=== PATIENT | male | born 1980 | race Caucasian/White ===

== ENCOUNTER 2017-06-08 14:32 | Emergency (ER) | payer MEDICARE, MEDICAID ==
[2017-06-08] MEDS ORDERED: NORMAL SALINE 1000 ML 1,000 ML IV ONE (15:18)
--- NOTE | 2017-06-08 15:21 | ER Document Report ---
ED Medical Screen (RME) - General Chief Complaint: Jaundice Stated Complaint: EYE ISSUES Time Seen by Provider: 06/08/17 15:18 Notes: Nausea vomiting and diarrhea. He also reports noticing that his eyes were yellow starting today. TRAVEL OUTSIDE OF THE [place] IN LAST 30 DAYS: No - Related Data Allergies/Adverse Reactions: Sulfa (Sulfonamide Antibiotics) Allergy (Verified 06/08/17 14:36) Past Medical History - Social History Chew tobacco use (# tins/day): No Frequency of alcohol use: Occasional Drug Abuse: None Neurological Medical History: Reports: Hx Seizures Renal/ Medical History: Denies: Hx Peritoneal Dialysis Past Surgical History: Reports: Hx Oral Surgery, Hx Orthopedic Surgery Physical Exam - Vital signs Vitals: Temp Pulse Resp BP Pulse Ox 98.1 F 112 H 14 157/96 H 98 06/08/17 14:40 06/08/17 14:40 06/08/17 14:40 06/08/17 14:40 06/08/17 14:40 Course - Vital Signs Vital signs: Temp Pulse Resp BP Pulse Ox 98.1 F 112 H 14 157/96 H 98 06/08/17 14:40 06/08/17 14:40 06/08/17 14:40 06/08/17 14:40 06/08/17 14:40
[2017-06-08 16:15] LABS: VENOUS BLOOD BASE EXCESS 4.5 mmol/L; VENOUS BLOOD HCO3 29.3 mmol/L (20-32); VENOUS BLOOD PCO2 44.4 mmHg (35-63); VENOUS BLOOD PH 7.44 (7.30-7.42)
[2017-06-08 16:21] LABS: INTERNATIONAL RATION (INR) 1.24; PROTHROMBIN TIME 16.5 SEC (11.4-15.4)
[2017-06-08 16:25] LABS: ABSOLUTE BASOPHILS # (AUTO) 0.1 10^3/uL (0.0-0.2); ABSOLUTE LYMPHOCYTES (AUTO) 0.5 10^3/uL (0.5-4.7); ABSOLUTE MONOCYTES (AUTO) 0.5 10^3/uL (0.1-1.4); ABSOLUTE NEUT (AUTO) 5.8 10^3/uL (1.7-8.2); BASOPHILS % (AUTO) 1.1 % (0-2); EOSINOPHILS % (AUTO) 0.3 % (0-6); HEMATOCRIT 39.9 % (37.9-51.0); HEMOGLOBIN 13.7 g/dL (13.5-17.0); LYMPHOCYTES % (AUTO) 7.5 % (13-45); MEAN CORPUSCULAR HEMOGLOBIN 34.9 pg (27.0-33.4); MEAN CORPUSCULAR HGB CONC 34.4 g/dL (32.0-36.0); MEAN CORPUSCULAR VOLUME 102 fl (80-97); MONOCYTES % (AUTO) 6.7 % (3-13); RED BLOOD COUNT 3.93 10^6/uL (4.35-5.55); RED CELL DISTRIBUTION WIDTH 15.6 % (11.5-14.0); SEGMENTED NEUTROPHILS % (AUTO) 84.4 % (42-78); TOTAL CELLS COUNTED % (AUTO) 100 %; WHITE BLOOD COUNT 6.9 10^3/uL (4.0-10.5)
[2017-06-08 16:35] LABS: ALANINE AMINOTRANSFERASE 59 U/L (21-72); ALBUMIN 3.7 g/dL (3.5-5.0); ALKALINE PHOSPHATASE 225 U/L (38-126); ANION GAP 12 (5-19); ASPARTATE AMINO TRANSFERASE 261 U/L (17-59); BILIRUBIN,DIRECT 11.4 mg/dL (0.0-0.4); BILIRUBIN,TOTAL 15.4 mg/dL (0.2-1.3); BLOOD UREA NITROGEN 9 mg/dL (7-20); CALCIUM 9.1 mg/dL (8.4-10.2); CARBON DIOXIDE 29 mmol/L (22-30); CHLORIDE 97 mmol/L (98-107); GLUCOSE 99 mg/dL (75-110); POTASSIUM 3.6 mmol/L (3.6-5.0); TOTAL PROTEIN 7.1 g/dL (6.3-8.2)
[2017-06-08 16:46] LABS: PLATELET COUNT 48 10^3/uL (150-450)
[2017-06-08 20:03] LABS: APPEARANCE,URINE SLIGHTLY-CLOUDY; BILIRUBIN,URINE MODERATE (NEGATIVE); COLOR,URINE AMBER; GLUCOSE, URINE NEGATIVE (NEGATIVE); KETONES,URINE 20 mg/dL (NEGATIVE); LEUKOCYTE ESTERASE,URINE NEGATIVE (NEGATIVE); NITRITE,URINE NEGATIVE (NEGATIVE); PROTEIN,URINE NEGATIVE (NEGATIVE); URINE SPECIFIC GRAVITY 1.021
--- NOTE | 2017-06-08 20:18 | ER Document Report ---
ED General - General Chief Complaint: Jaundice Stated Complaint: EYE ISSUES Time Seen by Provider: 06/08/17 15:18 Notes: Patient is a 36-year-old male who presents emergency department with a chief complaint of yellow eyes that started this morning. Patient states that he had nausea vomiting and diarrhea for the past 2 days stopped yesterday. Patient states that he woke up this morning with the otherwise his mom came over to see him for a doctor's appointment and said we have to go the ER to get this worked up. He otherwise denies any abdominal pain, itching, altered mental status, confusion, headaches. Denies any previous history of liver disease, hepatitis. Primary care is Dr. Christie with [facility], follows with Dr. Beck in [place] for ear nose and throat, neurologist is Dr. Nimesh ray in [place]. 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 Past surgical history significant for cochlear implants and tonsils Social history significant for 2-4 beers a day for the past 7-8 years. Patient states that his last drink was 2 days ago. TRAVEL OUTSIDE OF THE [place] IN LAST 30 DAYS: No - Related Data Allergies/Adverse Reactions: Sulfa (Sulfonamide Antibiotics) Allergy (Verified 06/08/17 14:36) Past Medical History - Social History Smoking Status: Never Smoker Chew tobacco use (# tins/day): No Frequency of alcohol use: Occasional Drug Abuse: None Family History: Reviewed & Not Pertinent Patient has suicidal ideation: No Patient has homicidal ideation: No Neurological Medical History: Reports: Hx Seizures Renal/ Medical History: Denies: Hx Peritoneal Dialysis Past Surgical History: Reports: Hx Oral Surgery, Hx Orthopedic Surgery Review of Systems - Review of Systems Constitutional: No symptoms reported EENT: See HPI Cardiovascular: No symptoms reported Respiratory: No symptoms reported Gastrointestinal: See HPI Musculoskeletal: No symptoms reported Skin: No symptoms reported Neurological/Psychological: No symptoms reported -: Yes All other systems reviewed and negative Physical Exam - Vital signs Vitals: Temp Pulse Resp BP Pulse Ox 98.1 F 112 H 14 157/96 H 98 06/08/17 14:40 06/08/17 14:40 06/08/17 14:40 06/08/17 14:40 06/08/17 14:40 - Notes Notes: PHYSICAL EXAM GENERAL: Alert, interacts well. HEAD: Normocephalic, atraumatic. EYES: Conjunctival icterus Pupils equal, round, and reactive to light. Extraocular movements intact. ENT: Oral mucosa moist, tongue midline. NECK: Full range of motion. Supple. Trachea midline. LUNGS: Clear to auscultation bilaterally, no wheezes, rales, or rhonchi. No respiratory distress. HEART: Regular rate and rhythm. No murmurs, gallops, or rubs. ABDOMEN: Soft, nondistended, nontender. No guarding, rebound, or rigidity.. Bowel sounds present in all 4 quadrants. EXTREMITIES: Moves all 4 extremities spontaneously. No edema, radial and dorsalis pedis pulses 2/4 bilaterally. No cyanosis. NEUROLOGICAL: Alert and oriented x4. Normal speech. PSYCH: Normal affect, normal mood. SKIN: Warm, dry, normal turgor. No rashes or lesions noted. Course - Re-evaluation Re-evalutation: 06/09/17 00:47 Patient is a 36-year-old male who is hemodynamically stable, no acute distress and afebrile. CBC stable without any evidence of leukocytosis or anemia. Mild elevation coag panel with an INR of 1.24. Elevation in liver enzymes AST of 261 , alk phos of 225 with a normal lipase. With a total bili of 15.4, direct bili of 11.4, presentation is concerning for a painful jaundice so patient was sent for a ultrasound in triage to evaluate for any gallbladder disease which came back with nondescript lesions of the liver. CT the abdomen pelvis with IV contrast was completed to evaluate for any pancreatic mass which did not show any evidence of. There is evidence of lesions within the liver as well as moderate ascites and moderate splenomegaly which is concerning for underlying liver disease. Discussed with patient and his mother at the bedside that this is something that will need to be followed up with a contracting manager for further evaluation. Discussed with him that he will need to quit drinking but he cannot do this abruptly. The other finding on CT the abdomen with small bowel swelling with concern for ileus. Patient has been tolerating p.o. for the past 24 hours and has had multiple bowel movements therefore low suspicion for any acute pathology. Will put patient on bowel rest with clear liquid diet for the next 48 hours and to follow-up with his primary care doctor tomorrow. Patient and his mom are agreeable with plan and given the opportunity for any questions which were all answered. Stable for discharge home. - Vital Signs Vital signs: Temp Pulse Resp BP Pulse Ox 99.1 F 100 18 141/95 H 97 06/09/17 00:50 06/09/17 00:50 06/09/17 00:50 06/09/17 00:50 06/09/17 00:50 - Laboratory Result Diagrams: 06/08/17 15:55 06/08/17 15:55 Laboratory results interpreted by me: 06/08/17 06/08/17 06/08/17 15:55 15:55 15:55 RBC MCV MCH RDW Plt Count Seg Neutrophils % Lymphocytes % PT 16.5 H VBG pH 7.44 H Chloride 97 L Total Bilirubin 15.4 H Direct Bilirubin 11.4 H AST 261 H Alkaline Phosphatase 225 H Ammonia Urine Ketones Urine Blood Urine Bilirubin Urine Urobilinogen 06/08/17 06/08/17 06/08/17 15:55 19:33 21:15 RBC 3.93 L MCV 102 H MCH 34.9 H RDW 15.6 H Plt Count 48 L Seg Neutrophils % 84.4 H Lymphocytes % 7.5 L PT VBG pH Chloride Total Bilirubin Direct Bilirubin AST Alkaline Phosphatase Ammonia < 8.7 L Urine Ketones 20 H Urine Blood SMALL H Urine Bilirubin MODERATE H Urine Urobilinogen 4.0 H - Diagnostic Test Radiology reviewed: Image reviewed, Reports reviewed Discharge - Discharge Clinical Impression: Elevated liver function tests, Pre-hypertension Condition: Good Disposition: HOME, SELF-CARE Additional Instructions: Liver Function Abnormality Your evaluation has shown an abnormality of your liver function. This may not be serious, but you need further testing. Abnormal liver function can be caused by alcohol, medicines, virus infections, heart failure, tumors, gallbladder problems, and many other diseases. But sometimes "abnormal" liver enzymes are "normal" -- it's just the way your liver works and there's nothing wrong. We need to be sure. If your doctor thinks the abnormal test was caused by alcohol, medicine, or a recent virus, we may just repeat the liver enzyme test later. Often, the test shows that the elevated enzymes are back to normal. Usually no treatment is necessary, except for avoiding the cause of the liver dysfunction (such as alcohol or a specific medicine). Further testing could include an ultrasound of the liver, liver scan, or perhaps a liver biopsy in difficult cases. Call the doctor if you become increasingly yellow, vomit repeatedly, begin to bruise or bleed easily, or have worsening abdominal pain.. Clear Liquid Diet A clear liquid diet has been prescribed. Start with small amounts. If these cause no worsening of symptoms, begin to take larger amounts of fluid. Ideally, these fluids should contain some sugar and minerals. Examples include: Soft drinks Apple juice Jello (with no fruit) Diluted broth Tea or uncreamed coffee This diet should be continued until the physician advises you to advance to other foods (usually when most symptoms have resolved). Most often you'll be told to advance to simple starchy foods such as soda crackers, white bread, unbuttered potato, or banana. *Please follow-up with Dr. Christie tomorrow for emergency room follow-up and referral for gastroenterology. Please bring this packet with her included blood work. Prescriptions: Ondansetron [Zofran Odt 4 mg Tablet] 1 - 2 tab PO Q4H PRN #15 tab.rapdis PRN Reason: For Nausea/Vomiting Forms: Elevated Blood Pressure Referrals: FARZAD MEADE MD [ACTIVE STAFF] - Follow up in 3-5 days
--- NOTE | 2017-06-08 20:26 | RADIOLOGY REPORT (SQ) ---
EXAM DESCRIPTION: U/S ABDOMEN LIMITED W/O DOP COMPLETED DATE/TIME: 06/08/2017 8:16 pm REASON FOR STUDY: elevated lfts/nvd/jaundice COMPARISON: None. TECHNIQUE: Dynamic and static grayscale images acquired of the right upper quadrant and recorded on PACS. Additional selected color Doppler and spectral images recorded. LIMITATIONS: Study limited due to acoustical interference from fat or from air in the bowel. FINDINGS: PANCREAS: Not visualized. LIVER: Echotexture is coarse with increased echogenicity consistent with fatty infiltration. No mass es. LIVER VASCULATURE: Normal directional flow of the main portal vein and hepatic veins. GALLBLADDER: No stones. Normal wall thickness. No pericholecystic fluid. ULTRASOUND-DETECTED REED'S SIGN: Negative. INTRAHEPATIC DUCTS AND COMMON DUCT: Poorly visualized. INFERIOR VENA CAVA: Not visualized. AORTA: Not visualized. RIGHT KIDNEY: Normal size. Normal echogenicity. No solid or suspicious masses. No hydronephros is. No calcifications. PERITONEAL CAVITY AND RIGHT PLEURAL SPACE: No ascites or effusions. OTHER: No other significant finding. IMPRESSION: LIMITED STUDY. FATTY LIVER. PANCREAS OBSCURED. NO OTHER SIGNIFICANT FINDINGS. TECHNICAL DOCUMENTATION: JOB ID: [id number] [employer]- All Rights Reserved
[2017-06-08 21:40] LABS: LIPASE 153.1 U/L (23-300)
[2017-06-08 21:42] LABS: ALCOHOL < 10 mg/dL (NONE DETECTED)
--- NOTE | 2017-06-08 23:26 | RADIOLOGY REPORT (SQ) ---
EXAM DESCRIPTION: CT ABD/PELVIS WITH IV ONLY CLINICAL HISTORY: 36 years Male, elevated LFT's, concern for mass COMPARISON: Ultrasound, same day. TECHNIQUE: 100 mL Isovue-370 contrast. Coronal and sagittal reformat. This exam was performed according to our departmental dose-optimization program, which includes automated exposure control, adjustment of the mA and/or kV according to patient size and/or use of iterative reconstruction technique. FINDINGS: Extensive abnormal heterogeneous low attenuation of the liver with at least three low-attenuation lesions measuring up to 4.1 cm each. Small-moderate ascites throughout the abdomen. Small pericholecystic fluid. Moderate splenomegaly; splenic index is 937. Splenic varices. Small retained fluid in the sigmoid. Mild inflated small bowel loops with air-fluid level in diameter measuring 2.6 cm suggests mild ileus. Minimal L1 anterior vertebral wedging. Inferior thorax, gallbladder, pancreas, adrenals, renal system, gastrointestinal tract, pelvic organs, lymphatics, vasculature, and musculoskeleton appear otherwise unremarkable. IMPRESSION: 1. Indeterminate liver abnormalities include three lesions measuring up to 4.1 cm each. Moderate splenomegaly. Small moderate ascites. Contrast MRI of the liver recommended. 2. Mild small bowel ileus.
[2017-06-09 00:51] VITALS: BP 141/95
[2017-06-11 06:38] LABS: HEPATITIS A AB IGM Negative (Negative); HEPATITIS B CORE AB IGM Negative (Negative); HEPATITS B SURFACE ANTIGEN Negative (Negative)
[2017-06-11 07:06] LABS: HEPATITIS C VIRUS ANTIBODY <0.1 s/co ratio (0.0-0.9)
== END 2017-06-09 01:15 | disposition home or self-care (01) ==
LOC: ER 14:32
DX: R74.0 Nonspecific elevation of levels of transaminase and lactic acid dehydrogenase [LDH] (principal); K76.89 Other specified diseases of liver; R18.8 Other ascites; R16.1 Splenomegaly, not elsewhere classified; R03.0 Elevated blood-pressure reading, without diagnosis of hypertension; Z79.899 Other long term (current) drug therapy; Z86.61 Personal history of infections of the central nervous system; Z96.21 Cochlear implant status; Z88.2 Allergy status to sulfonamides
CPT/HCPCS: 99285; 96360; 36415; 87040; 87086; 80307; 82140; 86256; 83690; 85025; 85610; 80053; 81001; 86235; 82105; 82803; 83605; 80074; 76705; 74177; J7030

== ENCOUNTER 2018-03-04 07:14 | Day surgery (SDC) | payer MEDICARE, MEDICAID ==
[2018-03-04 07:51] LABS: HEMATOCRIT 38.2 % (37.9-51.0); HEMOGLOBIN 13.8 g/dL (13.5-17.0); MEAN CORPUSCULAR HEMOGLOBIN 36.8 pg (27.0-33.4); MEAN CORPUSCULAR HGB CONC 36.1 g/dL (32.0-36.0); MEAN CORPUSCULAR VOLUME 102 fl (80-97); PLATELET COUNT 149 10^3/uL (150-450); RED BLOOD COUNT 3.75 10^6/uL (4.35-5.55); RED CELL DISTRIBUTION WIDTH 13.8 % (11.5-14.0); WHITE BLOOD COUNT 5.7 10^3/uL (4.0-10.5)
[2018-03-04 07:59] LABS: PROTHROMBIN TIME 17.9 SEC (11.4-15.4)
[2018-03-04 08:00] LABS: PARTIAL THROMBOPLASTIN TIME 40.5 SEC (23.5-35.8)
[2018-03-04 08:13] LABS: BLOOD UREA NITROGEN 4 mg/dL (7-20)
[2018-03-04] MEDS ORDERED: LIDOCAINE 1% INJ-PF (10 MG/ML) 30 ML SDV ONE (10:37)
[2018-03-04 12:02] VITALS: BP 130/90
[2018-03-04 12:35] LABS: FLUID TYPE PERITONEAL
[2018-03-04 12:36] LABS: FLUID APPEARANCE CLEAR; FLUID COLOR YELLOW; FLUID SOURCE ASCITES; FLUID VISCOSITY SLIGHTLY VISCOUS
--- NOTE | 2018-03-04 12:44 | RADIOLOGY REPORT (SQ) ---
EXAM DESCRIPTION: U/S ABD PARACENTESIS COMPLETED DATE/TIME: 03/04/2018 12:26 pm REASON FOR STUDY: ASCITES K70.31 ALCOHOLIC CIRRHOSIS OF LIVER WITH ASCITES COMPARISON: None. LIMITATIONS: None. PROCEDURE: Procedure, risks, benefit, and alternative explained to patient who then gave written con sent. The right lower abdominal wall marked using ultrasound guidance. A time-out was called for co rrect marking verification. Abdomen prepped and draped using sterile technique. Local anesthesia ach ieved using 3.0 ml of 1% lidocaine injection. A 6fr Bndd-F-Klxueypd set was introduced into the winter toneal cavity. Fluid was drained. The catheter was removed and entry site was covered with sterile bandage. No immediate complications noted. Images acquired during the procedure were stored on PACS. FINDINGS: ENTRY SITE: Right lower quadrant FLUID VOLUME: 6,050 FLUID ANALYSIS: Straw color OTHER: Fluid sent to the lab for testing. IMPRESSION: SUCCESSFUL ULTRASOUND GUIDED PARACENTESIS. COMMENT: Patient medication list reviewed:Yes- Quality ID# [id number]:Eligible professional attests to docu menting in the medical record they obtained, updated, or reviewed the patient's current medications. TECHNICAL DOCUMENTATION: JOB ID: [id number] [employer]- All Rights Reserved Reading location - IP/workstation name: [email or web address]
--- NOTE | 2018-03-04 12:47 | RADIOLOGY REPORT (SQ) ---
EXAM DESCRIPTION: U/S ABDOMEN COMPLETE W/O DOP COMPLETED DATE/TIME: 03/04/2018 12:21 pm REASON FOR STUDY: ASCITES K70.31 ALCOHOLIC CIRRHOSIS OF LIVER WITH ASCITES COMPARISON: None TECHNIQUE: Dynamic and static grayscale images acquired of the abdomen and recorded on PACS. Melaniao ana maria selected color Doppler and spectral images recorded. LIMITATIONS: Study limited due to acoustical interference from fat or from air in the bowel. FINDINGS: PANCREAS: Obscured. LIVER: Sub capsular nodularity. No masses. No dilated ducts. LIVER VASCULATURE: Not evaluated. GALLBLADDER: No stones. Normal wall thickness. No pericholecystic fluid. ULTRASOUND-DETECTED REED'S SIGN: Negative. INTRAHEPATIC DUCTS AND COMMON DUCT:CBD and intrahepatic ducts normal caliber. No filling defects. INFERIOR VENA CAVA: Normal flow. AORTA: No aneurysm. RIGHT KIDNEY: Normal size. Normal echogenicity. No solid or suspicious masses. No hydronephros is. No calcifications. LEFT KIDNEY: Normal size. Normal echogenicity. No solid or suspicious masses. No hydronephrosi s. No calcifications. SPLEEN:Normal size. No solid masses. PERITONEAL AND PLEURAL SPACES: Large amount of ascites. OTHER: No other significant finding. IMPRESSION: Cirrhosis. Large amount of ascites. TECHNICAL DOCUMENTATION: JOB ID: [id number] [employer]- All Rights Reserved Reading location - IP/workstation name: [email or web address]
== END 2018-03-04 12:15 | disposition home or self-care (01) ==
LOC: RAD 07:14
PROVIDERS: ATTEND Internal Medicine Gastroenterology
DX: K70.31 Alcoholic cirrhosis of liver with ascites (principal); Z79.899 Other long term (current) drug therapy; Z88.2 Allergy status to sulfonamides
CPT/HCPCS: 36415; 84520; 82565; 85027; 85610; 85730; 89050; 82042; 88162; 76700; 49083; J3490

== ENCOUNTER 2018-03-26 09:03 | Day surgery (SDC) | payer MEDICARE, MEDICAID ==
[2018-03-26 10:16] LABS: HEMATOCRIT 35.3 % (37.9-51.0); HEMOGLOBIN 12.5 g/dL (13.5-17.0); MEAN CORPUSCULAR HEMOGLOBIN 36.4 pg (27.0-33.4); MEAN CORPUSCULAR HGB CONC 35.5 g/dL (32.0-36.0); MEAN CORPUSCULAR VOLUME 103 fl (80-97); RED BLOOD COUNT 3.45 10^6/uL (4.35-5.55); RED CELL DISTRIBUTION WIDTH 13.7 % (11.5-14.0)
[2018-03-26 10:22] LABS: INTERNATIONAL RATION (INR) 1.41
[2018-03-26] MEDS ORDERED: LIDOCAINE 1% INJ-PF (10 MG/ML) 30 ML SDV ONE (10:22)
[2018-03-26 10:23] LABS: PARTIAL THROMBOPLASTIN TIME 39.6 SEC (23.5-35.8)
[2018-03-26 10:29] LABS: BLOOD UREA NITROGEN 6 mg/dL (7-20)
[2018-03-26 10:38] LABS: PLATELET COUNT 97 10^3/uL (150-450)
--- NOTE | 2018-03-26 11:49 | RADIOLOGY REPORT (SQ) ---
EXAM DESCRIPTION: U/S ABD PARACENTESIS COMPLETED DATE/TIME: 03/26/2018 11:40 am REASON FOR STUDY: ASCITES COMPARISON None. LIMITATIONS: None. PROCEDURE: After obtaining informed consent, the patient was brought to the ultrasound suite. The p rocedure was performed with the patient on a gurney. Ultrasound was used to identify a prominent poc ket of ascites in the right lower quadrant. An appropriate access site was selected. The patient wa s prepped and draped in usual sterile fashion. The access site was anesthetized with 3.0 mL 1% lido jay. A Eywn-G-Jtuccqup needle was advanced into the fluid. After aspiration of fluid the needle, the catheter was advanced off the needle into the fluid. A total of 6,000 mL of straw fluid was telly evelin. The patient tolerated the procedure well left the department in satisfactory condition. IMPRESSION: Successful ultrasound-guided paracentesis. Diagnostic and therapeutic. COMMENT: Patient medication list reviewed: Yes- Quality ID# [id number]:Eligible professional attests to doc umenting in the medical record they obtained, updated, or reviewed the patient's current medications. TECHNICAL DOCUMENTATION: JOB ID: [id number] [employer]- All Rights Reserved Reading location - IP/workstation name: [facility]-[email or web address]
[2018-03-26 12:36] LABS: FLUID APPEARANCE SLIGHTLY HAZY; FLUID COLOR YELLOW; FLUID SOURCE ASCITES; FLUID TYPE PERITONEAL; FLUID VISCOSITY LIQUID
[2018-03-26 12:52] VITALS: BP 123/73
== END 2018-03-26 12:45 | disposition home or self-care (01) ==
LOC: RAD 09:03
PROVIDERS: ATTEND Internal Medicine Gastroenterology
DX: K70.31 Alcoholic cirrhosis of liver with ascites (principal); K70.11 Alcoholic hepatitis with ascites; G40.909 Epilepsy, unspecified, not intractable, without status epilepticus; I10 Essential (primary) hypertension; Z88.2 Allergy status to sulfonamides; Z79.899 Other long term (current) drug therapy
CPT/HCPCS: 36415; 87205; 87070; 84520; 82565; 85027; 85610; 85730; 89050; 87075; 49083; J3490

== ENCOUNTER 2018-04-08 10:50 | Day surgery (SDC) | payer MEDICARE, MEDICAID ==
[2018-04-08 11:31] LABS: HEMATOCRIT 36.9 % (37.9-51.0); HEMOGLOBIN 13.3 g/dL (13.5-17.0); MEAN CORPUSCULAR HEMOGLOBIN 36.7 pg (27.0-33.4); MEAN CORPUSCULAR VOLUME 102 fl (80-97); RED BLOOD COUNT 3.62 10^6/uL (4.35-5.55); RED CELL DISTRIBUTION WIDTH 13.3 % (11.5-14.0); WHITE BLOOD COUNT 4.9 10^3/uL (4.0-10.5)
[2018-04-08 11:46] LABS: INTERNATIONAL RATION (INR) 1.36; PROTHROMBIN TIME 17.4 SEC (11.4-15.4)
[2018-04-08 11:47] LABS: PARTIAL THROMBOPLASTIN TIME 40.7 SEC (23.5-35.8)
[2018-04-08 11:52] LABS: BLOOD UREA NITROGEN 6 mg/dL (7-20)
[2018-04-08 11:57] LABS: PLATELET COUNT 89 10^3/uL (150-450)
[2018-04-08] MEDS ORDERED: LIDOCAINE 1% INJ-PF (10 MG/ML) 30 ML SDV ONE (12:51)
--- NOTE | 2018-04-08 14:53 | RADIOLOGY REPORT (SQ) ---
EXAM DESCRIPTION: U/S ABD PARACENTESIS COMPLETED DATE/TIME: 04/08/2018 2:42 pm REASON FOR STUDY: ASCITES COMPARISON 03/04/2018, 03/26/2018 LIMITATIONS: None. PROCEDURE: After obtaining informed consent, the patient was brought to the ultrasound suite. The p rocedure was performed with the patient on a gurney. Ultrasound was used to identify a prominent poc ket of ascites in the right lower quadrant. An appropriate access site was selected. The patient wa s prepped and draped in usual sterile fashion. The access site was anesthetized with 6 mL 1% lidoca ine. A Jmmj-I-Hykqyjhi needle was advanced into the fluid. After aspiration of fluid the needle, th e catheter was advanced off the needle into the fluid. A total of 10 L of clear straw-colored fluid was removed. The patient tolerated the procedure well left the department in satisfactory condition. Patient received IV albumin after the paracentesis. IMPRESSION: Successful ultrasound-guided paracentesis COMMENT: Patient medication list reviewed: Yes- Quality ID# [id number]:Eligible professional attests to doc umenting in the medical record they obtained, updated, or reviewed the patient's current medications. TECHNICAL DOCUMENTATION: JOB ID: [id number] [employer]- All Rights Reserved Reading location - IP/workstation name: [email or web address]
[2018-04-08] MEDS ORDERED: ALBUMIN HUMAN 62.5 GM/250 ML RTUINJ IV PRN (14:54)
[2018-04-08 16:25] VITALS: BP 117/71
== END 2018-04-08 16:58 | disposition home or self-care (01) ==
LOC: RAD 10:50
PROVIDERS: ATTEND Internal Medicine Gastroenterology
DX: K70.31 Alcoholic cirrhosis of liver with ascites (principal); G40.909 Epilepsy, unspecified, not intractable, without status epilepticus; Z79.899 Other long term (current) drug therapy; Z88.2 Allergy status to sulfonamides
CPT/HCPCS: 36415; 84520; 82565; 85027; 85610; 85730; 49083; P9047; J3490

== ENCOUNTER 2018-04-28 07:23 | Day surgery (SDC) | payer MEDICARE, MEDICAID ==
[2018-04-28 08:22] LABS: HEMATOCRIT 34.7 % (37.9-51.0); HEMOGLOBIN 12.6 g/dL (13.5-17.0); MEAN CORPUSCULAR HEMOGLOBIN 36.8 pg (27.0-33.4); MEAN CORPUSCULAR HGB CONC 36.4 g/dL (32.0-36.0); MEAN CORPUSCULAR VOLUME 101 fl (80-97); PLATELET COUNT 101 10^3/uL (150-450); RED BLOOD COUNT 3.43 10^6/uL (4.35-5.55); RED CELL DISTRIBUTION WIDTH 13.2 % (11.5-14.0)
[2018-04-28 08:23] LABS: PROTHROMBIN TIME 16.8 SEC (11.4-15.4)
[2018-04-28 08:24] LABS: PARTIAL THROMBOPLASTIN TIME 38.8 SEC (23.5-35.8)
[2018-04-28 08:44] LABS: BLOOD UREA NITROGEN 6 mg/dL (7-20)
[2018-04-28] MEDS ORDERED: ALBUMIN HUMAN IV PRN (10:34)
[2018-04-28] MEDS ORDERED: ALBUMIN HUMAN 75 GM/300 ML RTUINJ IV PRN (10:37)
--- NOTE | 2018-04-28 12:04 | RADIOLOGY REPORT (SQ) ---
EXAM DESCRIPTION: U/S ABD PARACENTESIS COMPLETED DATE/TIME: 04/28/2018 11:52 am REASON FOR STUDY: ASCITES, paracentesis COMPARISON 04/08/2018, 03/26/2018, 03/04/2018, 06/08/2017 LIMITATIONS: None. PROCEDURE: After obtaining informed consent, the patient was brought to the ultrasound suite. The p rocedure was performed with the patient on a gurney. Ultrasound was used to identify a prominent poc ket of ascites in the right lower quadrant. An appropriate access site was selected. The patient wa s prepped and draped in usual sterile fashion. The access site was anesthetized with 4.5 mL 1% lido jay. A Sbuu-E-Ybixcbqb needle was advanced into the fluid. After aspiration of fluid the needle, the catheter was advanced off the needle into the fluid. A total of 13,000 mL of clear yellow fluid was removed. The patient tolerated the procedure well left the department in satisfactory condition. Patient received IV albumin infusion after the procedure IMPRESSION: Successful ultrasound-guided paracentesis, therapeutic only COMMENT: Patient medication list reviewed: Yes- Quality ID# [id number]:Eligible professional attests to doc umenting in the medical record they obtained, updated, or reviewed the patient's current medications. TECHNICAL DOCUMENTATION: JOB ID: [id number] [employer]- All Rights Reserved Reading location - IP/workstation name: [email or web address]
[2018-04-28 12:44] VITALS: BP 115/64
== END 2018-04-28 13:00 | disposition home or self-care (01) ==
LOC: RAD 07:23
PROVIDERS: ATTEND Internal Medicine Gastroenterology
DX: K70.31 Alcoholic cirrhosis of liver with ascites (principal); G40.909 Epilepsy, unspecified, not intractable, without status epilepticus; Z79.899 Other long term (current) drug therapy
CPT/HCPCS: 36415; 84520; 82565; 85027; 85610; 85730; 49083; P9047

== ENCOUNTER 2018-05-14 07:25 | Day surgery (SDC) | payer MEDICARE, MEDICAID ==
[2018-05-14 08:25] LABS: HEMATOCRIT 34.1 % (37.9-51.0); HEMOGLOBIN 12.4 g/dL (13.5-17.0); MEAN CORPUSCULAR HEMOGLOBIN 36.8 pg (27.0-33.4); MEAN CORPUSCULAR HGB CONC 36.2 g/dL (32.0-36.0); MEAN CORPUSCULAR VOLUME 102 fl (80-97); RED BLOOD COUNT 3.35 10^6/uL (4.35-5.55); RED CELL DISTRIBUTION WIDTH 13.3 % (11.5-14.0); WHITE BLOOD COUNT 4.1 10^3/uL (4.0-10.5)
[2018-05-14 08:26] LABS: INTERNATIONAL RATION (INR) 1.37; PARTIAL THROMBOPLASTIN TIME 40.9 SEC (23.5-35.8); PROTHROMBIN TIME 17.6 SEC (11.4-15.4)
[2018-05-14 08:38] LABS: BLOOD UREA NITROGEN 5 mg/dL (7-20)
[2018-05-14 08:59] LABS: PLATELET COUNT 73 10^3/uL (150-450)
[2018-05-14] MEDS ORDERED: ALBUMIN HUMAN 75 GM/300 ML RTUINJ IV PRN (09:13)
--- NOTE | 2018-05-14 11:38 | RADIOLOGY REPORT (SQ) ---
EXAM DESCRIPTION: U/S ABD PARACENTESIS COMPLETED DATE/TIME: 05/14/2018 11:27 am REASON FOR STUDY: ASCITES COMPARISON 03/04/2018, 03/26/2018, 04/08/2018, 04/28/2018 paracentesis LIMITATIONS: None. PROCEDURE: After obtaining informed consent, the patient was brought to the ultrasound suite. The p rocedure was performed with the patient on a gurney. Ultrasound was used to identify a prominent poc ket of ascites in the left lower quadrant. An appropriate access site was selected. The patient was prepped and draped in usual sterile fashion. The access site was anesthetized with 6 mL 1% lidocai ne. A Kcwv-E-Qopvkyxc needle was advanced into the fluid. After aspiration of fluid the needle, the catheter was advanced off the needle into the fluid. A total of 10,000 mL of clear yellow fluid was removed. The patient tolerated the procedure well left the department in satisfactory condition. Rivas jimenez received 75 mg of IV albumin after the procedure IMPRESSION: Successful ultrasound-guided therapeutic only paracentesis COMMENT: Patient medication list reviewed: Yes- Quality ID# [id number]:Eligible professional attests to doc umenting in the medical record they obtained, updated, or reviewed the patient's current medications. TECHNICAL DOCUMENTATION: JOB ID: [id number] [employer]- All Rights Reserved Reading location - IP/workstation name: [email or web address]
[2018-05-14 12:06] VITALS: BP 112/67
== END 2018-05-14 12:10 | disposition home or self-care (01) ==
LOC: RAD 07:25
PROVIDERS: ATTEND Internal Medicine Gastroenterology
DX: K70.31 Alcoholic cirrhosis of liver with ascites (principal); E11.9 Type 2 diabetes mellitus without complications; G40.909 Epilepsy, unspecified, not intractable, without status epilepticus; Z79.899 Other long term (current) drug therapy
CPT/HCPCS: 36415; 84520; 82565; 85027; 85610; 85730; 49083; P9047

== ENCOUNTER 2018-05-28 10:54 | Day surgery (SDC) | payer MEDICARE, MEDICAID ==
[2018-05-28 12:49] LABS: INTERNATIONAL RATION (INR) 1.36; PROTHROMBIN TIME 17.5 SEC (11.4-15.4)
[2018-05-28 12:51] LABS: HEMATOCRIT 35.8 % (37.9-51.0); HEMOGLOBIN 13.1 g/dL (13.5-17.0); MEAN CORPUSCULAR HEMOGLOBIN 36.4 pg (27.0-33.4); MEAN CORPUSCULAR HGB CONC 36.7 g/dL (32.0-36.0); MEAN CORPUSCULAR VOLUME 99 fl (80-97); RED BLOOD COUNT 3.61 10^6/uL (4.35-5.55); RED CELL DISTRIBUTION WIDTH 13.7 % (11.5-14.0); WHITE BLOOD COUNT 5.1 10^3/uL (4.0-10.5)
[2018-05-28 13:10] LABS: BLOOD UREA NITROGEN 7 mg/dL (7-20)
[2018-05-28 13:13] LABS: PLATELET COUNT 89 10^3/uL (150-450)
[2018-05-28] MEDS ORDERED: ALBUMIN HUMAN 75 GM/300 ML RTUINJ IV PRN (15:09)
--- NOTE | 2018-05-28 15:11 | RADIOLOGY REPORT (SQ) ---
12 EXAM DESCRIPTION: U/S ABD PARACENTESIS COMPLETED DATE/TIME: 05/28/2018 3:00 pm REASON FOR STUDY: ASCITES COMPARISON 05/14/2018 LIMITATIONS: None. PROCEDURE: After obtaining informed consent, the patient was brought to the ultrasound suite. The p rocedure was performed with the patient on a gurney. Ultrasound was used to identify a prominent poc ket of ascites in the right lower quadrant. An appropriate access site was selected. The patient wa s prepped and draped in usual sterile fashion. The access site was anesthetized with 10 mL 1% lidoc fredi. A Lrrf-V-Qtwtkxtf needle was advanced into the fluid. After aspiration of fluid the needle, t he catheter was advanced off the needle into the fluid. A total of 10,000 mL of straw-colored fluid was removed. The patient tolerated the procedure well left the department in satisfactory condition. IMPRESSION: Successful ultrasound-guided paracentesis COMMENT: Patient medication list reviewed: Yes- Quality ID# [id number]:Eligible professional attests to doc umenting in the medical record they obtained, updated, or reviewed the patient's current medications. TECHNICAL DOCUMENTATION: JOB ID: [id number] [employer]- All Rights Reserved Reading location - IP/workstation name: [facility]
[2018-05-28 17:28] VITALS: BP 118/65
== END 2018-05-28 17:29 | disposition home or self-care (01) ==
LOC: RAD 10:54
PROVIDERS: ATTEND Internal Medicine Gastroenterology
DX: K70.31 Alcoholic cirrhosis of liver with ascites (principal); Z79.899 Other long term (current) drug therapy; Z88.2 Allergy status to sulfonamides; K75.9 Inflammatory liver disease, unspecified; G40.909 Epilepsy, unspecified, not intractable, without status epilepticus
CPT/HCPCS: 36415; 84520; 82565; 85027; 85610; 85730; 49083; P9047

== ENCOUNTER 2018-06-11 11:03 | Day surgery (SDC) | payer MEDICARE, MEDICAID ==
[2018-06-11 11:49] LABS: INTERNATIONAL RATION (INR) 1.29; PROTHROMBIN TIME 16.7 SEC (11.4-15.4)
[2018-06-11 11:50] LABS: PARTIAL THROMBOPLASTIN TIME 35.8 SEC (23.5-35.8)
[2018-06-11 11:55] LABS: HEMATOCRIT 35.1 % (37.9-51.0); HEMOGLOBIN 12.7 g/dL (13.5-17.0); MEAN CORPUSCULAR HEMOGLOBIN 36.4 pg (27.0-33.4); MEAN CORPUSCULAR HGB CONC 36.1 g/dL (32.0-36.0); MEAN CORPUSCULAR VOLUME 101 fl (80-97); RED BLOOD COUNT 3.48 10^6/uL (4.35-5.55); RED CELL DISTRIBUTION WIDTH 13.7 % (11.5-14.0); WHITE BLOOD COUNT 4.5 10^3/uL (4.0-10.5)
[2018-06-11 12:02] LABS: BLOOD UREA NITROGEN 7 mg/dL (7-20)
[2018-06-11 12:11] LABS: PLATELET COUNT 84 10^3/uL (150-450)
[2018-06-11] MEDS ORDERED: ALBUMIN HUMAN 75 GM/300 ML RTUINJ IV PRN (12:43)
[2018-06-11 16:11] VITALS: BP 110/61
--- NOTE | 2018-06-11 16:15 | RADIOLOGY REPORT (SQ) ---
EXAM DESCRIPTION: U/S ABD PARACENTESIS COMPLETED DATE/TIME: 06/11/2018 2:39 pm REASON FOR STUDY: ASCITES COMPARISON Multiple previous paracentesis LIMITATIONS: None. PROCEDURE: After obtaining informed consent, the patient was brought to the ultrasound suite. The p rocedure was performed with the patient on a gurney. Ultrasound was used to identify a prominent poc ket of ascites in the left lower quadrant. An appropriate access site was selected. The patient was prepped and draped in usual sterile fashion. The access site was anesthetized with 6 mL 1% lidocai ne. A Uajm-N-Syqzohnn needle was advanced into the fluid. After aspiration of fluid the needle, the catheter was advanced off the needle into the fluid. A total of 7750 mL mL of clear straw-colored f luid was removed. The patient tolerated the procedure well left the department in satisfactory condit ion. IMPRESSION: Successful ultrasound-guided paracentesis Therapeutic only, no specimens sent for testing. COMMENT: Patient medication list reviewed: Yes- Quality ID# [id number]:Eligible professional attests to doc umenting in the medical record they obtained, updated, or reviewed the patient's current medications. TECHNICAL DOCUMENTATION: JOB ID: [id number] [employer]- All Rights Reserved Reading location - IP/workstation name: [email or web address]
== END 2018-06-11 15:30 | disposition home or self-care (01) ==
LOC: RAD 11:03
PROVIDERS: ATTEND Nurse Practitioner
DX: K70.31 Alcoholic cirrhosis of liver with ascites (principal)
CPT/HCPCS: 36415; 84520; 82565; 85027; 85610; 85730; 49083; P9047

== ENCOUNTER 2018-06-21 07:26 | Day surgery (SDC) | payer MEDICARE, MEDICAID ==
[2018-06-21] MEDS ORDERED: ALBUMIN HUMAN 75 GM/300 ML RTUINJ IV PRN (08:12)
[2018-06-21 08:31] LABS: HEMATOCRIT 32.7 % (37.9-51.0); MEAN CORPUSCULAR HEMOGLOBIN 36.8 pg (27.0-33.4); MEAN CORPUSCULAR HGB CONC 36.8 g/dL (32.0-36.0); MEAN CORPUSCULAR VOLUME 100 fl (80-97); RED BLOOD COUNT 3.26 10^6/uL (4.35-5.55); RED CELL DISTRIBUTION WIDTH 13.8 % (11.5-14.0); WHITE BLOOD COUNT 4.5 10^3/uL (4.0-10.5)
[2018-06-21 08:33] LABS: INTERNATIONAL RATION (INR) 1.49; PROTHROMBIN TIME 18.7 SEC (11.4-15.4)
[2018-06-21 08:34] LABS: PARTIAL THROMBOPLASTIN TIME 40.2 SEC (23.5-35.8)
[2018-06-21 08:57] LABS: BLOOD UREA NITROGEN 6 mg/dL (7-20)
[2018-06-21 09:14] LABS: PLATELET COUNT 59 10^3/uL (150-450)
[2018-06-21 11:21] LABS: FLUID APPEARANCE SLIGHTLY HAZY; FLUID COLOR YELLOW; FLUID SOURCE ASCITES; FLUID TYPE PERITONEAL; FLUID VISCOSITY LIQUID
[2018-06-21 12:27] VITALS: BP 111/62
--- NOTE | 2018-06-21 12:42 | RADIOLOGY REPORT (SQ) ---
EXAM DESCRIPTION: U/S ABD PARACENTESIS COMPLETED DATE/TIME: 06/21/2018 11:39 am REASON FOR STUDY: ASCITES K70.31 ALCOHOLIC CIRRHOSIS OF LIVER WITH ASCITES COMPARISON: None. LIMITATIONS: None. PROCEDURE: Procedure, risks, benefit, and alternative explained to patient who then gave written con sent. The right lower abdominal wall marked using ultrasound guidance. A time-out was called for co rrect marking verification. Abdomen prepped and draped using sterile technique. Local anesthesia ach ieved using 3.0 ml of 1% lidocaine injection. A 6fr Zhlp-T-Riuvgtzh set was introduced into the winter toneal cavity. Fluid was drained. The catheter was removed and entry site was covered with sterile bandage. No immediate complications noted. Images acquired during the procedure were stored on PACS. FINDINGS: ENTRY SITE: Right lower quadrant. FLUID VOLUME: 66069 cc FLUID ANALYSIS: Straw OTHER: Fluid sent to the lab for testing. IMPRESSION: SUCCESSFUL ULTRASOUND GUIDED PARACENTESIS. COMMENT: Patient medication list reviewed:Yes- Quality ID# [id number]:Eligible professional attests to docu menting in the medical record they obtained, updated, or reviewed the patient's current medications. TECHNICAL DOCUMENTATION: JOB ID: [id number] [employer]- All Rights Reserved Reading location - IP/workstation name: [email or web address]
== END 2018-06-21 12:10 | disposition home or self-care (01) ==
LOC: RAD 07:26
PROVIDERS: ATTEND Internal Medicine Gastroenterology
DX: K70.31 Alcoholic cirrhosis of liver with ascites (principal); Z88.2 Allergy status to sulfonamides
CPT/HCPCS: 36415; 84520; 82565; 85027; 85610; 85730; 89050; 49083; P9047

== ENCOUNTER 2018-06-28 05:39 | Inpatient (IN) | payer MEDICARE, MEDICAID ==
[2018-06-28] MEDS ORDERED: ONDANSETRON HCL INJ/PF 4 MG/2 ML SDV IV ONE ×2 (05:54→07:49)
--- NOTE | 2018-06-28 06:28 | ER Document Report ---
ED General - General Chief Complaint: Nausea Stated Complaint: VOMITING Time Seen by Provider: 06/28/18 06:09 Primary Care Provider: EUNICE ESPITIA MD [Primary Care Provider] - Follow up as needed Mode of Arrival: Ambulatory Information source: Patient Notes: 37-year-old male with a history of cirrhosis and ascites presents emergency department with complaints of nausea that started around midnight. He denies any vomiting. He is being followed at [facility] and is on the liver transplant list. Family states that he is currently undergoing a workup for his liver transplant. Patient states that he was on antibiotics and pain pills in 2015 that caused the liver failure. He had a CT done in April that showed a liver mass that is possibly cancerous. He was scheduled to have a CT done today as well as additional testing for his liver transplant. Patient follows up with Dr. King at [facility] and Dr. Emely THOMPSON in [place]. He gets paracentesis done here every 2 weeks. His last one was done 9 days ago. He denies any abdominal pain, fever, chills, diarrhea, constipation. TRAVEL OUTSIDE OF THE [place] IN LAST 30 DAYS: No - HPI Onset: This morning Onset/Duration: Sudden Quality of pain: No pain Severity: None Pain Level: Denies Associated symptoms: None Exacerbated by: Denies Relieved by: Denies Similar symptoms previously: No Recently seen / treated by doctor: No - Related Data Allergies/Adverse Reactions: Sulfa (Sulfonamide Antibiotics) Allergy (Verified 06/21/18 07:49) Past Medical History - General Information source: Patient - Social History Smoking Status: Never Smoker Chew tobacco use (# tins/day): No Frequency of alcohol use: None Drug Abuse: None Family History: Reviewed & Not Pertinent Patient has suicidal ideation: No Patient has homicidal ideation: No - Past Medical History Cardiac Medical History: Denies: Hx Coronary Artery Disease, Hx Heart Attack, Hx Hypertension Pulmonary Medical History: Denies: Hx Asthma, Hx Bronchitis, Hx COPD, Hx Pneumonia Neurological Medical History: Reports: Hx Seizures - 2 YEARS AGO. Denies: Hx Cerebrovascular Accident Renal/ Medical History: Denies: Hx Peritoneal Dialysis Musculoskeletal Medical History: Denies Hx Arthritis Past Surgical History: Reports: Hx Oral Surgery, Hx Orthopedic Surgery - Immunizations Hx Diphtheria, Pertussis, Tetanus Vaccination: Yes Review of Systems - Review of Systems Constitutional: No symptoms reported EENT: No symptoms reported Cardiovascular: No symptoms reported Respiratory: No symptoms reported Gastrointestinal: Nausea Genitourinary: No symptoms reported Male Genitourinary: No symptoms reported Musculoskeletal: No symptoms reported Skin: No symptoms reported Hematologic/Lymphatic: No symptoms reported Neurological/Psychological: No symptoms reported -: Yes All other systems reviewed and negative Physical Exam - Vital signs Vitals: Temp Pulse Resp BP Pulse Ox 99 F 105 H 18 126/76 H 97 06/28/18 05:53 06/28/18 05:53 06/28/18 05:53 06/28/18 05:53 06/28/18 05:53 - Notes Notes: PHYSICAL EXAMINATION: GENERAL: Jaundice HEAD: Atraumatic, normocephalic. EYES: Pupils equal round and reactive to light, extraocular movements intact, sclera icteric, conjunctiva are normal. ENT: Nares patent, oropharynx clear without exudates. Moist mucous membranes. NECK: Normal range of motion, supple without lymphadenopathy LUNGS: Breath sounds clear to auscultation bilaterally and equal. No wheezes rales or rhonchi. HEART: Regular rate and rhythm without murmurs ABDOMEN: Soft, nontender, nondistended abdomen. No guarding, no rebound. Musculoskeletal: Normal range of motion, no pitting or edema. No cyanosis. NEUROLOGICAL: Cranial nerves grossly intact. Normal speech, normal gait. Normal sensory, motor exams PSYCH: Normal mood, normal affect. SKIN: Warm, Dry, normal turgor, no rashes or lesions noted. Course - Re-evaluation Re-evalutation: 06/28/18 07:25 EKG: Ventricular rate 98, DC interval 160, QRS duration 82, QTc 562, sinus rhythm, no ST segment elevation. 06/28/18 07:41 Labs obtained. Potassium is low. 40 mEq of potassium p.o. and 40 mEq IV were ordered. I contacted [facility] and spoke with Dr. Price, hepatology. He does not feel that the patient requires transfer to [facility] at this time. He feels that we can replace the patient's potassium and magnesium at [place]. He does recommend admission and obtaining a urinalysis, chest x-ray, diagnostic paracentesis to evaluate for infection that could be causing the patient's temperature to be 99. I contacted the hospitalist for admission. I spoke with Dr. Phillips. He is agreeable with the plan of care. - Vital Signs Vital signs: Temp Pulse Resp BP Pulse Ox 99 F 105 H 18 137/80 H 96 06/28/18 05:53 06/28/18 05:53 06/28/18 05:53 06/28/18 06:07 06/28/18 06:07 - Laboratory Result Diagrams: 06/28/18 06:10 06/28/18 06:10 Laboratory results interpreted by me: 06/28/18 06/28/18 06/28/18 06:10 06:10 06:10 RBC 3.59 L Hgb 13.4 L Hct 35.8 L MCV 100 H MCH 37.4 H MCHC 37.5 H RDW 14.5 H Plt Count 54 L Seg Neutrophils % 80.6 H Lymphocytes % 10.1 L PT 17.4 H APTT 38.1 H Sodium 131.9 L Potassium 2.4 L* Chloride 82 L Carbon Dioxide 34 H Creatinine 0.49 L Calcium 7.9 L Magnesium Total Bilirubin 9.9 H Direct Bilirubin 3.2 H AST 100 H Alkaline Phosphatase 130 H Total Protein 6.2 L 06/28/18 06:10 RBC Hgb Hct MCV MCH MCHC RDW Plt Count Seg Neutrophils % Lymphocytes % PT APTT Sodium Potassium Chloride Carbon Dioxide Creatinine Calcium Magnesium 1.1 L* Total Bilirubin Direct Bilirubin AST Alkaline Phosphatase Total Protein Discharge - Discharge Clinical Impression: Hypokalemia, Hypomagnesemia Condition: Stable Disposition: ADMITTED OBSERVATION Admitting Provider: Hospitalist Unit Admitted: Telemetry Referrals: EUNICE ESPITIA MD [Primary Care Provider] - Follow up as needed
[2018-06-28 06:32] LABS: INTERNATIONAL RATION (INR) 1.35; PROTHROMBIN TIME 17.4 SEC (11.4-15.4)
[2018-06-28 06:33] LABS: PARTIAL THROMBOPLASTIN TIME 38.1 SEC (23.5-35.8)
[2018-06-28 06:47] LABS: ALANINE AMINOTRANSFERASE 39 U/L (21-72); ALBUMIN 3.7 g/dL (3.5-5.0); ALKALINE PHOSPHATASE 130 U/L (38-126); ANION GAP 16 (5-19); ASPARTATE AMINO TRANSFERASE 100 U/L (17-59); BILIRUBIN,DIRECT 3.2 mg/dL (0.0-0.4); BILIRUBIN,TOTAL 9.9 mg/dL (0.2-1.3); BLOOD UREA NITROGEN 11 mg/dL (7-20); CALCIUM 7.9 mg/dL (8.4-10.2); CARBON DIOXIDE 34 mmol/L (22-30); CHLORIDE 82 mmol/L (98-107); GLUCOSE 108 mg/dL (75-110); SODIUM 131.9 mmol/L (137-145); TOTAL PROTEIN 6.2 g/dL (6.3-8.2)
[2018-06-28 06:50] LABS: POTASSIUM 2.4 mmol/L (3.6-5.0)
[2018-06-28 07:02] LABS: ABSOLUTE LYMPHOCYTES (AUTO) 0.7 10^3/uL (0.5-4.7); ABSOLUTE MONOCYTES (AUTO) 0.6 10^3/uL (0.1-1.4); ABSOLUTE NEUT (AUTO) 5.2 10^3/uL (1.7-8.2); BASOPHILS % (AUTO) 0.7 % (0-2); EOSINOPHILS % (AUTO) 0.1 % (0-6); HEMATOCRIT 35.8 % (37.9-51.0); HEMOGLOBIN 13.4 g/dL (13.5-17.0); LYMPHOCYTES % (AUTO) 10.1 % (13-45); MEAN CORPUSCULAR HEMOGLOBIN 37.4 pg (27.0-33.4); MEAN CORPUSCULAR VOLUME 100 fl (80-97); MONOCYTES % (AUTO) 8.5 % (3-13); RED BLOOD COUNT 3.59 10^6/uL (4.35-5.55); RED CELL DISTRIBUTION WIDTH 14.5 % (11.5-14.0); SEGMENTED NEUTROPHILS % (AUTO) 80.6 % (42-78); TOTAL CELLS COUNTED % (AUTO) 100 %; WHITE BLOOD COUNT 6.5 10^3/uL (4.0-10.5)
[2018-06-28 07:04] LABS: MEAN CORPUSCULAR HGB CONC 37.5 g/dL (32.0-36.0)
[2018-06-28 07:05] LABS: PLATELET COUNT 54 10^3/uL (150-450)
[2018-06-28] MEDS ORDERED: POTASSIUM CHLORIDE 10 MEQ CAPSULE.ER PO ONE ×2 (07:05→16:11)
[2018-06-28] MEDS: POTASSI CL 20 MEQ/50 ML RIDER 20 MEQ/50 ML RTUPB IV SCH ×4 (07:37→22:25)
[2018-06-28] MEDS: MAGNESIUM SULFATE/D5W 1 GM/100 ML RTUPB IV SCH ×2 (08:00→09:34)
--- NOTE | 2018-06-28 09:19 | RADIOLOGY REPORT (SQ) ---
EXAM DESCRIPTION: CHEST SINGLE VIEW COMPLETED DATE/TIME: 06/28/2018 8:41 am REASON FOR STUDY: fever COMPARISON: None. NUMBER OF VIEWS: One view. TECHNIQUE: Single frontal radiographic view of the chest acquired. LIMITATIONS: None. FINDINGS: LUNGS AND PLEURA: No opacities, masses or pneumothorax. No pleural effusion. MEDIASTINUM AND HILAR STRUCTURES: No masses. Contour normal. HEART AND VASCULAR STRUCTURES: Heart normal in size. Normal vasculature. BONES: No acute findings. HARDWARE: None in the chest. OTHER: No other significant finding. IMPRESSION: NO SIGNIFICANT RADIOGRAPHIC FINDING IN THE CHEST. TECHNICAL DOCUMENTATION: JOB ID: [id number] [employer]- All Rights Reserved Reading location - IP/workstation name: [email or web address]
--- NOTE | 2018-06-28 11:48 | RADIOLOGY REPORT (SQ) ---
EXAM DESCRIPTION: U/S ABD PARACENTESIS COMPLETED DATE/TIME: 06/28/2018 11:37 am REASON FOR STUDY: ascites, diag theraputic para COMPARISON: None. LIMITATIONS: None. PROCEDURE: Procedure, risks, benefit, and alternative explained to patient who then gave written con sent. The left lower quadrant abdominal wall marked using ultrasound guidance. A time-out was roca d for correct marking verification. Abdomen prepped and draped using sterile technique. Local anesth esia achieved using 3.0 ml of 1% lidocaine injection. A 6fr Eblt-V-Dlwvjyhx set was introduced into the peritoneal cavity. Fluid was drained. The catheter was removed and entry site was covered with sterile bandage. No immediate complications noted. Images acquired during the procedure were stored on PACS. FINDINGS: ENTRY SITE: Left lower quadrant FLUID VOLUME: 8600 cc FLUID ANALYSIS: Straw OTHER: Fluid sent to the lab for testing. IMPRESSION: SUCCESSFUL ULTRASOUND GUIDED PARACENTESIS. COMMENT: Patient medication list reviewed:Yes- Quality ID# [id number]:Eligible professional attests to docu menting in the medical record they obtained, updated, or reviewed the patient's current medications. TECHNICAL DOCUMENTATION: JOB ID: [id number] [employer]- All Rights Reserved Reading location - IP/workstation name: [email or web address]
[2018-06-28] MEDS: CEFTRIAXONE 1 GM/D5W RTU 1 GM/50 ML RTUPB IV SCH ×2 (12:03→15:53)
[2018-06-28 12:07] LABS: FLUID TYPE PERITONEAL
[2018-06-28 12:08] LABS: FLUID APPEARANCE CLEAR; FLUID COLOR YELLOW; FLUID SOURCE ASCITES; FLUID VISCOSITY LIQUID
[2018-06-28 14:24] LABS: APPEARANCE,URINE CLEAR; BILIRUBIN,URINE NEGATIVE (NEGATIVE); COLOR,URINE AMBER; GLUCOSE, URINE NEGATIVE (NEGATIVE); KETONES,URINE NEGATIVE (NEGATIVE); LEUKOCYTE ESTERASE,URINE NEGATIVE (NEGATIVE); NITRITE,URINE NEGATIVE (NEGATIVE); PROTEIN,URINE NEGATIVE (NEGATIVE); URINE SPECIFIC GRAVITY 1.013
--- NOTE | 2018-06-28 15:36 | PDOC H&P ---
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 In the ER, he was noted to be hypomagnesemic and hypokalemic. He is on Lasix 80 mg bid and amiloride. He does take Potassium 10 meqs daily. He is also on buttermaker continuous churn prophylaxis with ciprofloxacin by his GI. He follows up with [facility] as he is being considered for a possible liver transplant. 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 His mom is on the bedside to translate for him. He denies abdominal pain. No fever or chills. Past Medical History Cardiac Medical History: Denies: Coronary Artery Disease, Myocardial Infarction, Hypertension Pulmonary Medical History: Denies: Asthma, Bronchitis, Chronic Obstructive Pulmonary Disease (COPD), Pneumonia Neurological Medical History: Reports: Seizures - 2 YEARS AGO Musculoskeltal Medical History: Denies: Arthritis Hematology: Denies: Anemia Past Surgical History Past Surgical History: Reports: Orthopedic Surgery Social History Smoking Status: Never Smoker Family History Family History: Reviewed & Not Pertinent Parental Family History Reviewed: Yes - no premature CAD Children Family History Reviewed: No Sibling(s) Family History Reviewed.: No Medication/Allergy Home Medications: Amiloride HCl [Midamor 5 mg Tablet] 40 mg PO DAILY 06/28/18 Ciprofloxacin HCl [Cipro 500 mg Tablet] 500 mg PO DAILY 06/28/18 Furosemide [Lasix 80 mg Tablet] 80 mg PO BID 06/28/18 Potassium Chloride [Klor-Con M10] 10 meq PO DAILY 06/28/18 Allergies/Adverse Reactions: Sulfa (Sulfonamide Antibiotics) Allergy (Verified 06/21/18 07:49) Review of Systems All systems: reviewed and no additional remarkable complaints except as stated - as mentioned above Physical Exam Vital Signs: Temp Pulse Resp BP Pulse Ox 99 F 105 H 18 137/80 H 96 06/28/18 05:53 06/28/18 05:53 06/28/18 05:53 06/28/18 06:07 06/28/18 06:07 Intake & Output 06/27/18 06/28/18 06/29/18 06:59 06:59 06:59 Weight 189 lb 6.033 oz General appearance: PRESENT: no acute distress, well-developed, well-nourished Head exam: PRESENT: atraumatic, normocephalic Eye exam: PRESENT: conjunctiva pink, EOMI, PERRLA. ABSENT: scleral icterus Ear exam: PRESENT: normal external ear exam Mouth exam: PRESENT: moist, tongue midline Neck exam: ABSENT: carotid bruit, JVD, lymphadenopathy, thyromegaly Respiratory exam: PRESENT: clear to auscultation drake. ABSENT: rales, rhonchi, wheezes Cardiovascular exam: PRESENT: RRR. ABSENT: diastolic murmur, rubs, systolic murmur GI/Abdominal exam: PRESENT: ascites. ABSENT: tenderness Rectal exam: PRESENT: deferred Neurological exam: PRESENT: alert, awake, oriented to person, oriented to place, oriented to time, oriented to situation, CN II-XII grossly intact. ABSENT: motor sensory deficit Results Laboratory Results: 06/28/18 06:10 06/28/18 06:10 06/28/18 06/28/18 06/28/18 06:10 06:10 06:10 WBC 6.5 RBC 3.59 L Hgb 13.4 L Hct 35.8 L MCV 100 H MCH 37.4 H MCHC 37.5 H RDW 14.5 H Plt Count 54 L Seg Neutrophils % 80.6 H Lymphocytes % 10.1 L Monocytes % 8.5 Eosinophils % 0.1 Basophils % 0.7 Absolute Neutrophils 5.2 Absolute Lymphocytes 0.7 Absolute Monocytes 0.6 Absolute Eosinophils 0.0 Absolute Basophils 0.0 Sodium 131.9 L Potassium 2.4 L* Chloride 82 L Carbon Dioxide 34 H Anion Gap 16 BUN 11 Creatinine 0.49 L Est GFR ( Amer) > 60 Est GFR (Non-Af Amer) > 60 Glucose 108 Calcium 7.9 L Magnesium 1.1 L* Total Bilirubin 9.9 H AST 100 H ALT 39 Alkaline Phosphatase 130 H Total Protein 6.2 L Albumin 3.7 Lipase 123.0 Assessment & Plan - Diagnosis (1) Hypokalemia Is this a current diagnosis for this admission?: Yes Plan: Likely from diuretics. Replaced with oral and IV Potassium. Repeat BMP today. He may need higher dose of PO Potassium on discharge. (2) Hypomagnesemia Is this a current diagnosis for this admission?: Yes Plan: Replaced with IV Mg in ER. Will repeat Mg level. (3) Ascites of liver Is this a current diagnosis for this admission?: Yes Plan: Secondary to end stage liver disease. Ordered thoracentesis. Will give albumin after thoracentesis. - Time Time Spent: 30 to 50 Minutes
[2018-06-28] MEDS ORDERED: POTASSIUM CHLORIDE 10 MEQ CAPSULE.ER PO SCH (16:00)
[2018-06-28] MEDS: ALBUMIN HUMAN 12.5 GM/50 ML RTUINJ IV SCH ×3 (16:03→22:22)
[2018-06-28 16:04] LABS: ANION GAP 10 (5-19); BLOOD UREA NITROGEN 11 mg/dL (7-20); CALCIUM 7.9 mg/dL (8.4-10.2); CARBON DIOXIDE 38 mmol/L (22-30); CHLORIDE 83 mmol/L (98-107); GLUCOSE 124 mg/dL (75-110); SODIUM 130.6 mmol/L (137-145)
[2018-06-28 16:07] LABS: POTASSIUM 2.5 mmol/L (3.6-5.0)
[2018-06-28 16:50] LABS: A TYPE INFLUENZA AG NEGATIVE (NEGATIVE); B INFLUENZA AG NEGATIVE (NEGATIVE)
--- NOTE | 2018-06-28 18:23 | EKG REPORT ---
SEVERITY:- ABNORMAL ECG - SINUS RHYTHM BORDERLINE T ABNORMALITIES, ANT-LAT LEADS PROLONGED QT INTERVAL : Confirmed by: Jose Alfredo Guerin 28-Jun-2018 18:22:25
[2018-06-28] MEDS: NORMAL SALINE 1000 ML 1,000 ML IV PRN (20:27)
[2018-06-28] MEDS ORDERED: ALBUMIN HUMAN 12.5 GM/50 ML RTUINJ IV SCH (22:00)
[2018-06-29] MEDS: ALBUMIN HUMAN 12.5 GM/50 ML RTUINJ IV SCH (01:23)
[2018-06-29] MEDS: POTASSI CL 20 MEQ/50 ML RIDER 20 MEQ/50 ML RTUPB IV SCH ×3 (07:39→18:31)
--- NOTE | 2018-06-29 08:41 | Physician Advisory Note ---
Physician Advisor ProgressNote .: Pursuant to the plan for [facility], I have reviewed the medical record for this patient. Physician Advisor Statement: Please consider documenting, if you agree: 1. "Acute hyponatremia, suspect due to " [?adverse effect of Lasix? fluid overload related to cirrhosis? ...] vs. 'acute hyponatremia ruled out" Status: Medicare pt, approp'ly made Obs for nausea, T99 w/HR 105 initially, hypoK & hypoMag, cirrhosis/ascites. Expectation will be for d/c home today. - If pt not clinically safe for d/c home today (ongoing acute issues/concerns, new clinical issue), please document explicitly, & may then be appropriate for considering Inpt status. Thanks! CK
[2018-06-29] MEDS ORDERED: POTASSIUM CHLORIDE 10 MEQ CAPSULE.ER PO SCH (10:00)
[2018-06-29] MEDS ORDERED: AMILORIDE PO SCH (10:00)
[2018-06-29] MEDS: FUROSEMIDE 80 MG TABLET PO SCH ×2 (10:37→18:34)
[2018-06-29] MEDS: CIPROFLOXACIN HCL 500 MG TABLET PO SCH (10:38)
[2018-06-29] MEDS: NORMAL SALINE 1000 ML 1,000 ML IV PRN (10:59)
[2018-06-29 11:19] LABS: ABSOLUTE EOSINOPHILS # (AUTO) 0.1 10^3/uL (0.0-0.6); ABSOLUTE LYMPHOCYTES (AUTO) 0.6 10^3/uL (0.5-4.7); ABSOLUTE MONOCYTES (AUTO) 0.4 10^3/uL (0.1-1.4); ABSOLUTE NEUT (AUTO) 3.1 10^3/uL (1.7-8.2); BASOPHILS % (AUTO) 0.4 % (0-2); EOSINOPHILS % (AUTO) 1.2 % (0-6); HEMATOCRIT 31.4 % (37.9-51.0); HEMOGLOBIN 11.6 g/dL (13.5-17.0); LYMPHOCYTES % (AUTO) 14.7 % (13-45); MEAN CORPUSCULAR HEMOGLOBIN 37.5 pg (27.0-33.4); MEAN CORPUSCULAR HGB CONC 36.8 g/dL (32.0-36.0); MEAN CORPUSCULAR VOLUME 102 fl (80-97); MONOCYTES % (AUTO) 9.3 % (3-13); RED BLOOD COUNT 3.08 10^6/uL (4.35-5.55); RED CELL DISTRIBUTION WIDTH 14.7 % (11.5-14.0); SEGMENTED NEUTROPHILS % (AUTO) 74.4 % (42-78); TOTAL CELLS COUNTED % (AUTO) 100 %; WHITE BLOOD COUNT 4.2 10^3/uL (4.0-10.5)
[2018-06-29 11:39] LABS: ALANINE AMINOTRANSFERASE 16 U/L (21-72); ALBUMIN 3.2 g/dL (3.5-5.0); ALKALINE PHOSPHATASE 84 U/L (38-126); ANION GAP 9 (5-19); ASPARTATE AMINO TRANSFERASE 67 U/L (17-59); BILIRUBIN,DIRECT 3.6 mg/dL (0.0-0.4); BILIRUBIN,TOTAL 10.4 mg/dL (0.2-1.3); BLOOD UREA NITROGEN 11 mg/dL (7-20); CALCIUM 8.3 mg/dL (8.4-10.2); CARBON DIOXIDE 36 mmol/L (22-30); CHLORIDE 90 mmol/L (98-107); GLUCOSE 105 mg/dL (75-110); SODIUM 134.7 mmol/L (137-145); TOTAL PROTEIN 5.8 g/dL (6.3-8.2)
[2018-06-29 11:41] LABS: PLATELET COUNT 36 10^3/uL (150-450)
[2018-06-29 11:49] LABS: POTASSIUM 2.8 mmol/L (3.6-5.0)
[2018-06-29] MEDS: POTASSIUM CHLORIDE 10 MEQ CAPSULE.ER PO SCH ×2 (14:18→21:10)
--- NOTE | 2018-06-29 18:11 | PDOC PROGRESS REPORT ---
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 In the ER, he was noted to be hypomagnesemic and hypokalemic. He is on Lasix 80 mg bid and amiloride. He does take Potassium 10 meqs daily. He is also on retirement prophy laxis with ciprofloxacin by his GI. He follows up with [facility] as he is being considered for a possible liver transplant. 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 His mom is on the bedside to translate for him. He denies abdominal pain. No fever or chills. 06/29/[id number]-qplt-old male with liver failure admitted for massive ascites status post paracentesis 7 L of fluid was removed and he was hypokalemic ,hypomagnesemia -magnesium is improved to 1.8 after supplementation, potassium still persisting around 2.8 today. Patient is asymptomatic denies any complaints today. As per the family request I spoke to Dr. Man in the [facility] he agreed with the plan of care here and he agreed for plan of discharge tomorrow. Reason For Visit: HYPOKALEMIA,HYPOMAGNESEMIA,ASCITE R/O SBP, Physical Exam Vital Signs: Temp Pulse Resp BP Pulse Ox 98.8 F 103 H 17 115/60 98 06/29/18 15:48 06/29/18 15:48 06/29/18 15:48 06/29/18 15:48 06/29/18 15:48 Intake & Output 06/28/18 06/29/18 06/30/18 06:59 06:59 06:59 Intake Total 1239 1249 Balance 1239 1249 Weight 85.9 kg 77.5 kg General appearance: PRESENT: no acute distress Head exam: PRESENT: atraumatic Eye exam: PRESENT: PERRLA Mouth exam: PRESENT: moist Neck exam: ABSENT: carotid bruit, JVD, lymphadenopathy, thyromegaly Respiratory exam: PRESENT: clear to auscultation drake. ABSENT: rales, rhonchi, wheezes Cardiovascular exam: PRESENT: RRR. ABSENT: diastolic murmur, rubs, systolic murmur GI/Abdominal exam: PRESENT: normal bowel sounds, soft. ABSENT: distended, guarding, mass, organolmegaly, rebound, tenderness Neurological exam: PRESENT: alert, awake, oriented to person, oriented to place, oriented to time, oriented to situation, CN II-XII grossly intact. ABSENT: mo tor sensory deficit Psychiatric exam: PRESENT: appropriate affect, normal mood. ABSENT: homicidal ideation, suicidal ideation Results Laboratory Results: 06/29/18 10:25 06/29/18 10:25 06/29/18 06/29/18 10:25 10:25 WBC 4.2 RBC 3.08 L Hgb 11.6 L Hct 31.4 L MCV 102 H MCH 37.5 H MCHC 36.8 H RDW 14.7 H Plt Count 36 L Seg Neutrophils % 74.4 Lymphocytes % 14.7 Monocytes % 9.3 Eosinophils % 1.2 Basophils % 0.4 Absolute Neutrophils 3.1 Absolute Lymphocytes 0.6 Absolute Monocytes 0.4 Absolute Eosinophils 0.1 Absolute Basophils 0.0 Sodium 134.7 L Potassium 2.8 L* Chloride 90 L Carbon Dioxide 36 H Anion Gap 9 BUN 11 Creatinine 0.62 Est GFR ( Amer) > 60 Est GFR (Non-Af Amer) > 60 Glucose 105 Calcium 8.3 L Magnesium 1.8 Total Bilirubin 10.4 H AST 67 H ALT 16 L Alkaline Phosphatase 84 Total Protein 5.8 L Albumin 3.2 L Impressions: Chest X-Ray 06/28/18 07:30 IMPRESSION: NO SIGNIFICANT RADIOGRAPHIC FINDING IN THE CHEST. Paracentesis Ultrasound 06/28/18 08:12 IMPRESSION: SUCCESSFUL ULTRASOUND GUIDED PARACENTESIS. Assessment & Plan - Diagnosis (1) Ascites of liver Is this a current diagnosis for this admission?: Yes Plan: 06/29/2018-patient has history of liver failure causing massive ascites status post paracentesis and 7 L of fluid was removed which was followed by albumin administration. Patient is asymptomatic. (2) Hypokalemia Is this a current diagnosis for this admission?: Yes Plan: 06/29/2018-patient has persistent hypokalemia it is 2.8 today. He is going to receive K rider 40 mg IV 1 dose and potassium chloride 40 mg p.o. 3 times daily. Patient is asymptomatic. (3) Hypomagnesemia Is this a current diagnosis for this admission?: Yes Plan: 06/29/2018 patient was admitted with hypomagnesemia with magnesium of 1.1 with IV magnesium supplementation it was improved to 1.8 today. I started him on magnesium oxide 800 mg 3 times daily. We are going to check the labs again tomorrow. - Time Time Spent with patient: 15-24 minutes Medications reviewed and adjusted accordingly: Yes Anticipated discharge: Home
[2018-06-30] MEDS: POTASSIUM CHLORIDE 10 MEQ CAPSULE.ER PO SCH (06:28)
[2018-06-30] MEDS: NORMAL SALINE 1000 ML 1,000 ML IV PRN (06:29)
[2018-06-30 07:33] LABS: ABSOLUTE EOSINOPHILS # (AUTO) 0.2 10^3/uL (0.0-0.6); ABSOLUTE LYMPHOCYTES (AUTO) 1.3 10^3/uL (0.5-4.7); ABSOLUTE MONOCYTES (AUTO) 0.5 10^3/uL (0.1-1.4); ABSOLUTE NEUT (AUTO) 5.5 10^3/uL (1.7-8.2); BASOPHILS % (AUTO) 0.5 % (0-2); EOSINOPHILS % (AUTO) 2.2 % (0-6); HEMATOCRIT 34.4 % (37.9-51.0); HEMOGLOBIN 12.5 g/dL (13.5-17.0); LYMPHOCYTES % (AUTO) 17.2 % (13-45); MEAN CORPUSCULAR HEMOGLOBIN 37.3 pg (27.0-33.4); MEAN CORPUSCULAR HGB CONC 36.5 g/dL (32.0-36.0); MEAN CORPUSCULAR VOLUME 102 fl (80-97); MONOCYTES % (AUTO) 6.9 % (3-13); RED BLOOD COUNT 3.36 10^6/uL (4.35-5.55); RED CELL DISTRIBUTION WIDTH 14.7 % (11.5-14.0); SEGMENTED NEUTROPHILS % (AUTO) 73.2 % (42-78); TOTAL CELLS COUNTED % (AUTO) 100 %; WHITE BLOOD COUNT 7.5 10^3/uL (4.0-10.5)
[2018-06-30 07:38] LABS: ALANINE AMINOTRANSFERASE 18 U/L (21-72); ALBUMIN 3.5 g/dL (3.5-5.0); ALKALINE PHOSPHATASE 161 U/L (38-126); ANION GAP 10 (5-19); ASPARTATE AMINO TRANSFERASE 64 U/L (17-59); BILIRUBIN,DIRECT 2.5 mg/dL (0.0-0.4); BLOOD UREA NITROGEN 15 mg/dL (7-20); CALCIUM 8.4 mg/dL (8.4-10.2); CARBON DIOXIDE 31 mmol/L (22-30); CHLORIDE 96 mmol/L (98-107); GLUCOSE 103 mg/dL (75-110); POTASSIUM 3.4 mmol/L (3.6-5.0); TOTAL PROTEIN 6.3 g/dL (6.3-8.2)
[2018-06-30 08:09] LABS: PLATELET COUNT 46 10^3/uL (150-450)
[2018-06-30 08:11] LABS: BILIRUBIN,TOTAL 6.2 mg/dL (0.2-1.3)
[2018-06-30] MEDS: CIPROFLOXACIN HCL 500 MG TABLET PO SCH (09:16)
[2018-06-30] MEDS: FUROSEMIDE 80 MG TABLET PO SCH (09:16)
[2018-06-30] MEDS ORDERED: MAGNESIUM OXIDE 400 MG TABLET PO SCH (10:00)
[2018-06-30 15:16] VITALS: BP 128/75
--- NOTE | 2018-06-30 17:02 | PDOC DISCHARGE SUMMARY ---
General - Admit/Disc Date/PCP Admission Date/Primary Care Provider: 06/29/18 18:03 EUNICE ESPITIA MD Discharge Date: 06/30/18 - Discharge Diagnosis (1) Ascites of liver Is this a current diagnosis for this admission?: Yes Summary: 06/29/2018-patient has history of liver failure causing massive ascites status post paracentesis and 7 L of fluid was removed which was followed by albumin administration. Patient is asymptomatic. 06/30/2018-patient was admitted with massive ascites secondary to liver failure. Status post paracentesis and 7 L of fluid is removed. Paracentesis is followed by IV albumin infusion. Patient is asymptomatic after the procedure. He is going home today. (2) Hypokalemia Is this a current diagnosis for this admission?: Yes Summary: 06/29/2018-patient has persistent hypokalemia it is 2.8 today. He is going to receive K rider 40 mg IV 1 dose and potassium chloride 40 mg p.o. 3 times daily. Patient is asymptomatic. 06/30/2018-patient was admitted with persistent hypokalemia with IV K rider n.p.o. potassium supplementations potassium is improved to 3.8 today. (3) Hypomagnesemia Is this a current diagnosis for this admission?: Yes Summary: 06/29/2018 patient was admitted with hypomagnesemia with magnesium of 1.1 with IV magnesium supplementation it was improved to 1.8 today. I started him on magnesium oxide 800 mg 3 times daily. We are going to check the labs again tomorrow. 06/30/2018-patient was admitted with hypomagnesemia with magnesium of 1.1 he got IV magnesium supplementation. this morning magnesium is 1.5 to go home on magnesium oxide 800 mg p.o. 3 times daily. - Additional Information Resuscitation Status: Full Code Discharge Diet: Regular Discharge Activity: Activity As Tolerated Prescriptions: Magnesium Oxide [Mag-Ox 400 mg Tablet] 800 mg PO TID #90 tablet Potassium Chloride [Klor-Con 10 Meq Capsule ER] 40 meq PO Q8 #90 capsule.er Home Medications: Amiloride HCl [Midamor 5 mg Tablet] 40 mg PO DAILY 06/28/18 Ciprofloxacin HCl [Cipro 500 mg Tablet] 500 mg PO DAILY 06/28/18 Furosemide [Lasix 80 mg Tablet] 80 mg PO BID 06/28/18 Magnesium Oxide [Mag-Ox 400 mg Tablet] 800 mg PO TID #90 tablet 06/30/18 Potassium Chloride [Klor-Con 10 Meq Capsule ER] 40 meq PO Q8 #90 capsule.er 06/30/18 History of Present Illness History of Present Illness: JAMMIE GALLAGHER is a 37 year old male 37 year old male with a PMH of 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 In the ER, he was noted to be hypomagnesemic and hypokalemic. He is on Lasix 80 mg bid and amiloride. He does take Potassium 10 meqs daily. He is also on mcfp prophylaxis with ciprofloxacin by his GI. He follows up with [facility] as he is being considered for a possible liver transplant. 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 His mom is on the bedside to translate for him. He denies abdominal pain. No fever or chills. Physical Exam Vital Signs: Temp Pulse Resp BP Pulse Ox 98.9 F 102 H 16 128/75 H 100 06/30/18 15:15 06/30/18 15:15 06/30/18 15:15 06/30/18 15:15 06/30/18 15:15 Intake & Output 06/29/18 06/30/18 07/01/18 06:59 06:59 06:59 Intake Total 1239 2541 Balance 1239 2541 Weight 77.5 kg 80.7 kg General appearance: PRESENT: no acute distress Head exam: PRESENT: atraumatic Eye exam: PRESENT: PERRLA Neck exam: ABSENT: carotid bruit, JVD, lymphadenopathy, thyromegaly Respiratory exam: PRESENT: clear to auscultation drake. ABSENT: rales, rhonchi, wheezes Cardiovascular exam: PRESENT: RRR. ABSENT: diastolic murmur, rubs, systolic murmur GI/Abdominal exam: PRESENT: normal bowel sounds, soft. ABSENT: distended, guarding, mass, organolmegaly, rebound, tenderness Extremities exam: PRESENT: full ROM. ABSENT: calf tenderness, clubbing, pedal edema Neurological exam: PRESENT: alert, awake, oriented to person, oriented to place, oriented to time, oriented to situation, CN II-XII grossly intact. ABSENT: motor sensory deficit Psychiatric exam: PRESENT: appropriate affect, normal mood. ABSENT: homicidal ideation, suicidal ideation Results Laboratory Results: 06/30/18 06:33 06/30/18 06:33 06/30/18 06/30/18 06:33 06:33 WBC 7.5 RBC 3.36 L Hgb 12.5 L Hct 34.4 L MCV 102 H MCH 37.3 H MCHC 36.5 H RDW 14.7 H Plt Count 46 L Seg Neutrophils % 73.2 Lymphocytes % 17.2 Monocytes % 6.9 Eosinophils % 2.2 Basophils % 0.5 Absolute Neutrophils 5.5 Absolute Lymphocytes 1.3 Absolute Monocytes 0.5 Absolute Eosinophils 0.2 Absolute Basophils 0.0 Sodium 137.0 Potassium 3.4 L Chloride 96 L Carbon Dioxide 31 H Anion Gap 10 BUN 15 Creatinine 0.61 Est GFR ( Amer) > 60 Est GFR (Non-Af Amer) > 60 Glucose 103 Calcium 8.4 Magnesium 1.5 L Total Bilirubin 6.2 H D AST 64 H ALT 18 L Alkaline Phosphatase 161 H Total Protein 6.3 Albumin 3.5 Impressions: Chest X-Ray 06/28/18 07:30 IMPRESSION: NO SIGNIFICANT RADIOGRAPHIC FINDING IN THE CHEST. Paracentesis Ultrasound 06/28/18 08:12 IMPRESSION: SUCCESSFUL ULTRASOUND GUIDED PARACENTESIS. Qualifiers - * PATIENT BEING DISCHARGED WITH ANY OF THE FOLLOWING DIAGNOSIS: No VTE patient discharged on overlapping Therapy?: Yes
== END 2018-06-30 16:01 | disposition home or self-care (01) | DRG 433 ==
LOC: ER 05:39 → EH 07:41 → 5 11:44 → OBSVTOIN 06-29 18:03
PROVIDERS: ADMIT Internal Medicine; ATTEND Internal Medicine
PROC: 0W9G3ZX Drainage of Peritoneal Cavity, Percutaneous Approach, Diagnostic (ICD-10-PCS; principal; 2018-06-28)
DX: K70.31 Alcoholic cirrhosis of liver with ascites (principal); R18.8 Other ascites; E87.1 Hypo-osmolality and hyponatremia; D50.9 Iron deficiency anemia, unspecified; E87.6 Hypokalemia; E83.42 Hypomagnesemia; Z88.2 Allergy status to sulfonamides; H91.8X3 Other specified hearing loss, bilateral
CPT/HCPCS: 36415; 49083; 71045; 80048; 80053; 81001; 83690; 83735; 85025; 85610; 85730; 87040; 87070; 87075; 87205; 87804; 89050; 93005; 93010; 96365; 96366; 96368; 96375; 96376; 99285; G0378; J0696; J2405; J3475; J3480; J3490; J7030; P9047

== ENCOUNTER 2018-07-09 08:17 | Day surgery (SDC) | payer MEDICARE, MEDICAID ==
[~2018-07-09 08:17] MED LIST: ALBUMIN HUMAN 75 GM/300 ML RTUINJ IV PRN
[2018-07-09 09:24] LABS: HEMATOCRIT 33.3 % (37.9-51.0); HEMOGLOBIN 11.6 g/dL (13.5-17.0); MEAN CORPUSCULAR HEMOGLOBIN 36.8 pg (27.0-33.4); MEAN CORPUSCULAR VOLUME 105 fl (80-97); PLATELET COUNT 125 10^3/uL (150-450); RED BLOOD COUNT 3.16 10^6/uL (4.35-5.55); RED CELL DISTRIBUTION WIDTH 14.8 % (11.5-14.0); WHITE BLOOD COUNT 5.4 10^3/uL (4.0-10.5)
[2018-07-09 09:56] LABS: PROTHROMBIN TIME 16.8 SEC (11.4-15.4)
[2018-07-09 09:57] LABS: PARTIAL THROMBOPLASTIN TIME 37.6 SEC (23.5-35.8)
--- NOTE | 2018-07-09 12:18 | RADIOLOGY REPORT (SQ) ---
EXAM DESCRIPTION: U/S ABD PARACENTESIS COMPLETED DATE/TIME: 07/09/2018 11:57 am REASON FOR STUDY: ASCITES COMPARISON 06/28/2018 LIMITATIONS: None. PROCEDURE: After obtaining informed consent, the patient was brought to the ultrasound suite. The p rocedure was performed with the patient on a gurney. Ultrasound was used to identify a prominent poc ket of ascites in the right lower quadrant. An appropriate access site was selected. The patient wa s prepped and draped in usual sterile fashion. The access site was anesthetized with 10 mL 1% lidoc fredi. A [id number] needle was advanced into the fluid. After aspiration of fluid the needle, t he catheter was advanced off the needle into the fluid. A total of 5,000 mL of straw-colored fluid w as removed. The patient tolerated the procedure well left the department in satisfactory condition. IMPRESSION: Successful ultrasound-guided paracentesis COMMENT: Patient medication list reviewed: Yes- Quality ID# [id number]:Eligible professional attests to doc umenting in the medical record they obtained, updated, or reviewed the patient's current medications. TECHNICAL DOCUMENTATION: JOB ID: [id number] [employer]- All Rights Reserved Reading location - IP/workstation name: [email or web address]
[2018-07-09 14:22] VITALS: BP 116/70
== END 2018-07-09 12:20 | disposition home or self-care (01) ==
LOC: RAD 08:17
PROVIDERS: ATTEND Internal Medicine Gastroenterology
DX: K70.31 Alcoholic cirrhosis of liver with ascites (principal); G40.909 Epilepsy, unspecified, not intractable, without status epilepticus; Z88.2 Allergy status to sulfonamides; Z88.1 Allergy status to other antibiotic agents; Z79.899 Other long term (current) drug therapy
CPT/HCPCS: 36415; 49083; 85027; 85610; 85730; P9047

== ENCOUNTER 2018-07-16 10:27 | Emergency (ER) | payer MEDICARE, MEDICAID ==
[2018-07-16] MEDS ORDERED: RINGERS SOLUTION,LACTATED 1,000 ML IV ONE (11:08)
[2018-07-16] MEDS ORDERED: ONDANSETRON HCL INJ/PF 4 MG/2 ML SDV IV ONE (11:08)
[2018-07-16] MEDS ORDERED: FENTANYL CITRATE INJ/PF 100 MCG/2 ML AMPUL IV ONE ×3 (11:09→13:23)
--- NOTE | 2018-07-16 11:11 | ER Document Report ---
ED Medical Screen (RME) - General Chief Complaint: Abdominal Pain Stated Complaint: ABDOMINAL PAIN Time Seen by Provider: 07/16/18 10:52 Primary Care Provider: EUNICE ESPITIA MD [Primary Care Provider] - Follow up as needed Notes: Patient is a 37-year-old male with liver carcinoma that presents to the emergency department for chief complaint of abdominal pain. Patient started having abdominal pain, nausea, and dark blood in the stool this morning, this is abnormal for him, he typically does not have pain, he does have a history of esophageal varices, due for scope on July 25. He is typically seen at [facility] for his treatments, he is on the liver transplant list. ROS: Other than noted above, the 12 point review of systems was reviewed with the patient and were negative, all pertinent findings are included in the HPI. PHYSICAL EXAMINATION: Vital signs reviewed. GENERAL: Patient appears very uncomfortable HEAD: Atraumatic, normocephalic. EYES: Pupils equal round extraocular movements intact, conjunctiva are normal. ENT: Nares patent NECK: Normal range of motion CV: Heart regular rate and rhythm LUNGS: No respiratory distress Abdomen: Diffusely tender to palpate, umbilical hernia, with purplish hue noted, per mother this is the normal appearance Musculoskeletal: Normal range of motion NEUROLOGICAL: No focal neuro deficit PSYCH: Normal mood, normal affect. MDM: Patient seen and examined for rapid initial assessment. Vital signs reviewed. A comprehensive ED assessment and evaluation of the patient, analysis of test results and completion of the medical decision making process will be conducted by additional ED providers. *Note is created using voice recognition software and may contain spelling, syntax or grammatical errors. TRAVEL OUTSIDE OF THE [place] IN LAST 30 DAYS: No - Related Data Allergies/Adverse Reactions: Sulfa (Sulfonamide Antibiotics) Allergy (Verified 07/16/18 10:36) Past Medical History - Social History Chew tobacco use (# tins/day): No Frequency of alcohol use: None Drug Abuse: None - Past Medical History Cardiac Medical History: Denies: Hx Coronary Artery Disease, Hx Heart Attack, Hx Hypertension Pulmonary Medical History: Denies: Hx Asthma, Hx Bronchitis, Hx COPD, Hx Pneumonia Neurological Medical History: Reports: Hx Seizures - 2 YEARS AGO. Denies: Hx Cerebrovascular Accident Renal/ Medical History: Denies: Hx Peritoneal Dialysis GI Medical History: Reports: Hx Cirrhosis Musculoskeltal Medical History: Denies Hx Arthritis Past Surgical History: Reports: Hx Oral Surgery, Hx Orthopedic Surgery - Immunizations Hx Diphtheria, Pertussis, Tetanus Vaccination: Yes History of Influenza Vaccine for 02/2017 - 07/2017 Season: Refused Physical Exam - Vital signs Vitals: Temp Pulse Resp BP Pulse Ox 98.5 F 72 14 96/46 L 100 07/16/18 10:42 07/16/18 10:42 07/16/18 10:42 07/16/18 10:42 07/16/18 10:42 Course - Vital Signs Vital signs: Temp Pulse Resp BP Pulse Ox 98.5 F 72 14 96/46 L 100 07/16/18 10:42 07/16/18 10:42 07/16/18 10:42 07/16/18 10:42 07/16/18 10:42 Doctor's Discharge - Discharge Referrals: EUNICE ESPITIA MD [Primary Care Provider] - Follow up as needed
[2018-07-16 12:07] LABS: ABSOLUTE BASOPHILS # (AUTO) 0.1 10^3/uL (0.0-0.2); ABSOLUTE EOSINOPHILS # (AUTO) 0.1 10^3/uL (0.0-0.6); ABSOLUTE LYMPHOCYTES (AUTO) 1.4 10^3/uL (0.5-4.7); ABSOLUTE MONOCYTES (AUTO) 0.4 10^3/uL (0.1-1.4); ABSOLUTE NEUT (AUTO) 5.2 10^3/uL (1.7-8.2); BASOPHILS % (AUTO) 0.8 % (0-2); HEMATOCRIT 36.5 % (37.9-51.0); HEMOGLOBIN 12.9 g/dL (13.5-17.0); LYMPHOCYTES % (AUTO) 19.8 % (13-45); MEAN CORPUSCULAR HGB CONC 35.3 g/dL (32.0-36.0); MEAN CORPUSCULAR VOLUME 105 fl (80-97); MONOCYTES % (AUTO) 5.9 % (3-13); PLATELET COUNT 151 10^3/uL (150-450); RED BLOOD COUNT 3.48 10^6/uL (4.35-5.55); RED CELL DISTRIBUTION WIDTH 14.1 % (11.5-14.0); SEGMENTED NEUTROPHILS % (AUTO) 71.5 % (42-78); TOTAL CELLS COUNTED % (AUTO) 100 %; WHITE BLOOD COUNT 7.2 10^3/uL (4.0-10.5)
[2018-07-16 12:10] LABS: INTERNATIONAL RATION (INR) 1.28; PROTHROMBIN TIME 16.7 SEC (11.4-15.4)
[2018-07-16 12:21] LABS: ALANINE AMINOTRANSFERASE 36 U/L (21-72); ALBUMIN 3.4 g/dL (3.5-5.0); ALKALINE PHOSPHATASE 148 U/L (38-126); ANION GAP 7 (5-19); ASPARTATE AMINO TRANSFERASE 63 U/L (17-59); BILIRUBIN,DIRECT 1.3 mg/dL (0.0-0.4); BILIRUBIN,TOTAL 3.3 mg/dL (0.2-1.3); BLOOD UREA NITROGEN 14 mg/dL (7-20); CALCIUM 8.9 mg/dL (8.4-10.2); CARBON DIOXIDE 26 mmol/L (22-30); CHLORIDE 102 mmol/L (98-107); GLUCOSE 114 mg/dL (75-110); POTASSIUM 4.2 mmol/L (3.6-5.0); SODIUM 135.1 mmol/L (137-145); TOTAL PROTEIN 6.3 g/dL (6.3-8.2)
[2018-07-16 12:23] LABS: APPEARANCE,URINE SLIGHTLY-CLOUDY; BILIRUBIN,URINE NEGATIVE (NEGATIVE); COLOR,URINE AMBER; GLUCOSE, URINE NEGATIVE (NEGATIVE); KETONES,URINE NEGATIVE (NEGATIVE); LEUKOCYTE ESTERASE,URINE NEGATIVE (NEGATIVE); NITRITE,URINE NEGATIVE (NEGATIVE); PROTEIN,URINE 30 mg/dL (NEGATIVE); URINE SPECIFIC GRAVITY 1.026
--- NOTE | 2018-07-16 12:39 | ER Document Report ---
ED General - General Chief Complaint: Abdominal Pain Stated Complaint: ABDOMINAL PAIN Time Seen by Provider: 07/16/18 10:52 Primary Care Provider: EUNICE ESPITIA MD [Primary Care Provider] - Follow up as needed Mode of Arrival: Medic Information source: Patient, Relative, [facility] Records Notes: 37-year-old deaf male with recent diagnosis of liver carcinoma presents via EMS with complaint of abdominal pain that started this morning as well as maroon colored stools. Patient is on a transplant list. He does undergo regular paracentesis here at [facility] with his last one being performed approximately 1 week ago. Patient has a known umbilical hernia which is usually not painful for him but today he is experiencing sharp throbbing pain around his umbilicus. Patient denies any associated nausea, vomiting, chest pain, fever, shortness of breath. Patient does undergo care at [facility]. Mother is at the bedside and acts as document design specialist. Patient does read lips. Patient did receive fentanyl in triage and states it did initially help but the pain is returning. Mother reports that patient's liver failure was secondary to medication that he received as a child for spinal meningitis. TRAVEL OUTSIDE OF THE [place] IN LAST 30 DAYS: No - HPI Onset: This morning Onset/Duration: Sudden Quality of pain: Sharp, Throbbing Severity: Moderate Associated symptoms: denies: Chest pain, Diarrhea, Fever, Nausea, Vomiting, Shortness of breath Exacerbated by: Movement Relieved by: Denies Similar symptoms previously: No Recently seen / treated by doctor: Yes - Related Data Allergies/Adverse Reactions: Sulfa (Sulfonamide Antibiotics) Allergy (Verified 07/16/18 10:36) Past Medical History - General Information source: Patient, [facility] Records - Social History Smoking Status: Never Smoker Chew tobacco use (# tins/day): No Frequency of alcohol use: None Drug Abuse: None Lives with: Family, Spouse/Significant other Family History: Reviewed & Not Pertinent Patient has suicidal ideation: No Patient has homicidal ideation: No - Past Medical History Cardiac Medical History: Denies: Hx Coronary Artery Disease, Hx Heart Attack, Hx Hypertension Pulmonary Medical History: Denies: Hx Asthma, Hx Bronchitis, Hx COPD, Hx Pneumonia Neurological Medical History: Reports: Hx Seizures - 2 YEARS AGO. Denies: Hx Cerebrovascular Accident Renal/ Medical History: Denies: Hx Peritoneal Dialysis GI Medical History: Reports: Hx Cirrhosis, Hx Liver Failure, Other Musculoskeletal Medical History: Denies Hx Arthritis Past Surgical History: Reports: Hx Oral Surgery, Hx Orthopedic Surgery - Immunizations Hx Diphtheria, Pertussis, Tetanus Vaccination: Yes Hx Pneumococcal Vaccination: 05/25/16 Review of Systems - Review of Systems Constitutional: denies: Fever, Recent illness EENT: denies: Blurred vision, Sinus pressure Cardiovascular: denies: Chest pain, Palpitations, Dizziness, Lightheaded Respiratory: denies: Cough, Short of breath Gastrointestinal: Abdomen distended, Abdominal pain, Blood streaked bowels, Other - Maroon colored stool. denies: Diarrhea, Nausea, Vomiting, Poor appetite, Poor fluid intake Genitourinary: denies: Dysuria, Flank pain Male Genitourinary: No symptoms reported Musculoskeletal: No symptoms reported Skin: denies: Rash Hematologic/Lymphatic: No symptoms reported Neurological/Psychological: denies: Confusion, Seizure, Headaches -: Yes All other systems reviewed and negative Physical Exam - Vital signs Vitals: Temp Pulse Resp BP Pulse Ox 98.5 F 72 14 96/46 L 100 07/16/18 10:42 07/16/18 10:42 07/16/18 10:42 07/16/18 10:42 07/16/18 10:42 - Notes Notes: PHYSICAL EXAMINATION: GENERAL: Well-appearing, well-nourished and in no acute distress. HEAD: Atraumatic, normocephalic. EYES: Pupils equal round and reactive to light, extraocular movements intact, sclera anicteric, conjunctiva are normal. ENT: Nares patent, oropharynx clear without exudates. Moist mucous membranes. NECK: Normal range of motion, supple without lymphadenopathy LUNGS: Breath sounds clear to auscultation bilaterally and equal. No wheezes rales or rhonchi. HEART: Regular rate and rhythm without murmurs ABDOMEN: Soft, nontender, nondistended abdomen. No guarding, no rebound. No masses appreciated. Intractable umbilical hernia that is tender with palpation. Musculoskeletal: Normal range of motion, no pitting or edema. No cyanosis. NEUROLOGICAL: Cranial nerves grossly intact. Normal speech, normal gait. Normal sensory, motor exams PSYCH: Normal mood, normal affect. SKIN: Warm, Dry, normal turgor, no rashes or lesions noted. Course - Re-evaluation Re-evalutation: Laboratory 07/16/18 07/16/18 07/16/18 11:25 11:25 11:25 WBC 7.2 RBC 3.48 L Hgb 12.9 L Hct 36.5 L MCV 105 H MCH 37.0 H MCHC 35.3 RDW 14.1 H Plt Count 151 Seg Neutrophils % 71.5 Lymphocytes % 19.8 Monocytes % 5.9 Eosinophils % 2.0 Basophils % 0.8 Absolute Neutrophils 5.2 Absolute Lymphocytes 1.4 Absolute Monocytes 0.4 Absolute Eosinophils 0.1 Absolute Basophils 0.1 PT 16.7 H INR 1.28 VBG pH VBG pCO2 VBG HCO3 VBG Base Excess Sodium 135.1 L Potassium 4.2 Chloride 102 Carbon Dioxide 26 Anion Gap 7 BUN 14 Creatinine 0.63 Est GFR ( Amer) > 60 Est GFR (Non-Af Amer) > 60 Glucose 114 H POC Glucose Lactic Acid Calcium 8.9 Total Bilirubin 3.3 H Direct Bilirubin 1.3 H Neonat Total Bilirubin Not Reportable Neonat Direct Bilirubin Not Reportable Neonat Indirect Bili Not Reportable AST 63 H ALT 36 Alkaline Phosphatase 148 H Total Protein 6.3 Albumin 3.4 L Urine Color Urine Appearance Urine pH Ur Specific [place] Urine Protein Urine Glucose (UA) Urine Ketones Urine Blood Urine Nitrite Urine Bilirubin Urine Urobilinogen Ur Leukocyte Esterase Urine WBC (Auto) Urine RBC (Auto) U Hyaline Cast (Auto) Urine Mucus (Auto) Urine Ascorbic Acid 07/16/18 07/16/18 07/16/18 11:25 11:25 11:29 WBC RBC Hgb Hct MCV MCH MCHC RDW Plt Count Seg Neutrophils % Lymphocytes % Monocytes % Eosinophils % Basophils % Absolute Neutrophils Absolute Lymphocytes Absolute Monocytes Absolute Eosinophils Absolute Basophils PT INR VBG pH Cancelled VBG pCO2 Cancelled VBG HCO3 Cancelled VBG Base Excess Cancelled Sodium Potassium Chloride Carbon Dioxide Anion Gap BUN Creatinine Est GFR ( Amer) Est GFR (Non-Af Amer) Glucose POC Glucose 118 H Lactic Acid 1.5 Calcium Total Bilirubin Direct Bilirubin Neonat Total Bilirubin Neonat Direct Bilirubin Neonat Indirect Bili AST ALT Alkaline Phosphatase Total Protein Albumin Urine Color Urine Appearance Urine pH Ur Specific [place] Urine Protein Urine Glucose (UA) Urine Ketones Urine Blood Urine Nitrite Urine Bilirubin Urine Urobilinogen Ur Leukocyte Esterase Urine WBC (Auto) Urine RBC (Auto) U Hyaline Cast (Auto) Urine Mucus (Auto) Urine Ascorbic Acid 07/16/18 07/16/18 11:46 12:32 WBC RBC Hgb Hct MCV MCH MCHC RDW Plt Count Seg Neutrophils % Lymphocytes % Monocytes % Eosinophils % Basophils % Absolute Neutrophils Absolute Lymphocytes Absolute Monocytes Absolute Eosinophils Absolute Basophils PT INR VBG pH 7.40 VBG pCO2 45.1 VBG HCO3 27.2 VBG Base Excess 1.9 Sodium Potassium Chloride Carbon Dioxide Anion Gap BUN Creatinine Est GFR ( Amer) Est GFR (Non-Af Amer) Glucose POC Glucose Lactic Acid Calcium Total Bilirubin Direct Bilirubin Neonat Total Bilirubin Neonat Direct Bilirubin Neonat Indirect Bili AST ALT Alkaline Phosphatase Total Protein Albumin Urine Color TAVON Urine Appearance SLIGHTLY-CLOUDY Urine pH 7.0 Ur Specific [place] 1.026 Urine Protein 30 H Urine Glucose (UA) NEGATIVE Urine Ketones NEGATIVE Urine Blood NEGATIVE Urine Nitrite NEGATIVE Urine Bilirubin NEGATIVE Urine Urobilinogen 2.0 H Ur Leukocyte Esterase NEGATIVE Urine WBC (Auto) 0 Urine RBC (Auto) 0 U Hyaline Cast (Auto) 1 Urine Mucus (Auto) MANY Urine Ascorbic Acid 40 H Abdomen/Pelvis CT 07/16/18 00:00 IMPRESSION: 1. There is a fluid and small bowel containing umbilical hernia with fluid-filled although not overly obstructed proximal loops of small bowel and decompressed distal bowel. Maximum caliber of proximal small bowel is appro ximately 3.0 cm. There is gas and stool present in the colon to the rectum. Developing small bowel obstruction is not excluded, recommend close clinical follow-up and consideration of repeat imaging if there is developing concern for bowel obstruction or hernia strangulation. 2. Stigmata of portal hypertension and large volume ascites. Abdomen Ultrasound 07/16/18 14:27 IMPRESSION: 1. Gall sludge as seen on prior CT. Gallbladder wall is thickened measuring 0.6 cm, a nonspecific finding in the setting of ascites. Negative sonographic Pizano sign. No biliary ductal dilation. Findings are indeterminate for cholecystitis. 2. Large volume ascites. Temp Pulse Resp BP Pulse Ox 98.5 F 72 16 115/73 97 07/16/18 10:42 07/16/18 10:42 07/16/18 15:01 07/16/18 15:00 07/16/18 15:01 07/16/18 14:17 Patient's hernia was reduced with steady pressure. He does report improvement of pain. 07/16/18 16:25 Patient was reevaluated he is smiling, laughing and states that the pain has completely resolved. As far as the CAT scan reading of possible small bowel obstruction patient is having flatus, having bowel movements is not vomiting. Patient and his as well as his parents were provided all the imaging that were performed today. Advised to return immediately if pain persists he stops having bowel movements or starts vomiting. Patient was provided an abdominal binder. He does not wish to have any pain medication for home. - Vital Signs Vital signs: Temp Pulse Resp BP Pulse Ox 98.5 F 72 16 115/73 97 07/16/18 10:42 07/16/18 10:42 07/16/18 15:01 07/16/18 15:00 07/16/18 15:01 - Laboratory Result Diagrams: 07/16/18 11:25 07/16/18 11:25 Laboratory results interpreted by me: 07/16/18 07/16/18 07/16/18 11:25 11:25 11:25 RBC 3.48 L Hgb 12.9 L Hct 36.5 L MCV 105 H MCH 37.0 H RDW 14.1 H PT 16.7 H Sodium 135.1 L Glucose 114 H POC Glucose Total Bilirubin 3.3 H Direct Bilirubin 1.3 H AST 63 H Alkaline Phosphatase 148 H Albumin 3.4 L Urine Protein Urine Urobilinogen Urine Ascorbic Acid 07/16/18 07/16/18 11:29 11:46 RBC Hgb Hct MCV MCH RDW PT Sodium Glucose POC Glucose 118 H Total Bilirubin Direct Bilirubin AST Alkaline Phosphatase Albumin Urine Protein 30 H Urine Urobilinogen 2.0 H Urine Ascorbic Acid 40 H - Diagnostic Test Radiology reviewed: Image reviewed, Reports reviewed - EKG Interpretation by Me EKG shows normal: Sinus rhythm Rate: Normal Rhythm: NSR When compared to previous EKG there are: No significant change Discharge - Discharge Clinical Impression: Ascites of liver, Umbilical hernia without obstruction or gangrene, Gallbladder disease, History of liver failure Abdominal pain Qualifiers: Abdominal location: periumbilical Qualified Code(s): R10.33 - Periumbilical pain Condition: Good Disposition: HOME, SELF-CARE Instructions: Gallbladder Disease ([facility]), Umbilical Hernia ([facility]), Abdominal Pain ([facility]) Additional Instructions: Follow up with your -59 hours for further care or return to the ED IMMEDIATELY if symptoms worsen or you have any concerns. If you cannot afford to follow up with your primary care physician a list of low cost clinics have been provided at the end of your discharge papers as well. Most prescribed medications have multiple side effects. The safest thing to do is when filling your prescription speak to your pharmacist regarding possible interactions with your normal home medications and over the counter medications such as Ibuprofen, Tylenol, Benadryl. If you experience any symptoms that cause you discomfort or concern you should discontinue the medication immediately and return to the emergency room or call your primary care physician. Referrals: EUNICE ESPITIA MD [Primary Care Provider] - Follow up as needed
[2018-07-16 12:47] LABS: VENOUS BLOOD BASE EXCESS 1.9 mmol/L; VENOUS BLOOD HCO3 27.2 mmol/L (20-32); VENOUS BLOOD PCO2 45.1 mmHg (35-63); VENOUS BLOOD PH 7.4 (7.30-7.42)
--- NOTE | 2018-07-16 13:24 | EKG REPORT ---
SEVERITY:- BORDERLINE ECG - SINUS RHYTHM BORDERLINE PROLONGED QT INTERVAL : Confirmed by: Balwinder Low MD 16-Jul-2018 13:23:22
--- NOTE | 2018-07-16 14:08 | RADIOLOGY REPORT (SQ) ---
EXAM DESCRIPTION: CT ABD/PELVIS WITH IV ORAL COMPLETED DATE/TIME: 07/16/2018 1:44 pm REASON FOR STUDY: abdominal pain, hernia COMPARISON: 06/08/2017 TECHNIQUE: CT scan of the abdomen and pelvis performed using helical scanning technique with dynamic intravenous contrast injection. No oral contrast. Images reviewed with lung, soft tissue, and bone windows. Reconstructed coronal and sagittal MPR images reviewed. Delayed images for evaluation of the urinary system also acquired. All images stored on PACS. All CT scanners at this facility use dose modulation, iterative reconstruction, and/or weight based d osing when appropriate to reduce radiation dose to as low as reasonably achievable (ALARA). [facility]: Dose Right [facility]: CareDose [facility]: Dose Right [facility]: Teradose 4D [facility]: Spacenet CONTRAST TYPE AND DOSE: contrast/concentration: Isovue 350.00 mg/ml; Total Contrast Delivered: 93.0 ml; Total Saline Delivered: 71.0 ml RENAL FUNCTION: None required. The patient is less than 50 years old. RADIATION DOSE: CT Rad equipment meets quality standard of care and radiation dose reduction techniq ues were employed. CTDIvol: 9.8 - 13.8 mGy. DLP: 1523 mGy-cm.. LIMITATIONS: None. FINDINGS: LOWER CHEST: No significant findings. No nodules or infiltrates. LIVER: Somewhat shrunken and nodular contour of the liver. SPLEEN: Splenomegaly with large splenorenal varices. PANCREAS: No masses. No significant calcifications. No adjacent inflammation or peripancreatic fluid collections. Pancreatic duct not dilated. GALLBLADDER: Small gallstones and/or gall sludge in the gallbladder. ADRENAL GLANDS: No significant masses or asymmetry. RIGHT KIDNEY AND URETER: No solid masses. No significant calcifications. No hydronephrosis or hyd roureter. LEFT KIDNEY AND URETER: No solid masses. No significant calcifications. No hydronephrosis or hydr oureter. AORTA AND VESSELS: No aneurysm. No dissection. Renal arteries, SMA, celiac without stenosis. RETROPERITONEUM: No retroperitoneal adenopathy, hemorrhage or masses. BOWEL AND PERITONEAL CAVITY: No masses or inflammatory changes. No free fluid or peritoneal masses. APPENDIX: Normal. PELVIS: No mass. No free fluid. Normal bladder. ABDOMINAL WALL: There is a fluid and small bowel containing umbilical hernia with fluid-filled althou gh not overly obstructed proximal loops of small bowel and decompressed distal bowel. Maximum calibe r of proximal small bowel is approximately 3.0 cm. There is gas and stool present in the colon to th e rectum. BONES: No significant or acute findings. OTHER: No other significant finding. IMPRESSION: 1. There is a fluid and small bowel containing umbilical hernia with fluid-filled althou gh not overly obstructed proximal loops of small bowel and decompressed distal bowel. Maximum calibe r of proximal small bowel is approximately 3.0 cm. There is gas and stool present in the colon to th e rectum. Developing small bowel obstruction is not excluded, recommend close clinical follow-up and consideration of repeat imaging if there is developing concern for bowel obstruction or hernia stran gulation. 2. Stigmata of portal hypertension and large volume ascites. TECHNICAL DOCUMENTATION: JOB ID: [id number] Quality ID # [id number]: Final reports with documentation of one or more dose reduction techniques (e.g., Au tomated exposure control, adjustment of the mA and/or kV according to patient size, use of iterative reconstruction technique) 2010 [employer]- All Rights Reserved Reading location - IP/workstation name: [email or web address]
[2018-07-16 15:38] VITALS: BP 115/73
--- NOTE | 2018-07-16 16:06 | RADIOLOGY REPORT (SQ) ---
EXAM DESCRIPTION: U/S ABDOMEN LIMITED W/O DOP COMPLETED DATE/TIME: 07/16/2018 3:53 pm REASON FOR STUDY: gallstones seen on CT w pain COMPARISON: CT abdomen pelvis, 07/16/2017 TECHNIQUE: Dynamic and static grayscale images acquired of the abdomen and recorded on PACS. Additio nal selected color Doppler and spectral images recorded. LIMITATIONS: None. FINDINGS: PANCREAS: Obscured. LIVER: Heterogeneous echotexture. LIVER VASCULATURE: Normal directional flow of the main portal vein and hepatic veins. GALLBLADDER: Gall sludge is present. Gallbladder wall is thickened measuring 0.6 cm. Negative sonog raphic Pizano's sign. ULTRASOUND-DETECTED PIZANO'S SIGN: Negative. INTRAHEPATIC DUCTS AND COMMON DUCT: CBD and intrahepatic ducts normal caliber. No filling defects. INFERIOR VENA CAVA: Normal flow. AORTA: No aneurysm. RIGHT KIDNEY: Normal size. Normal echogenicity. No solid or suspicious masses. No hydronephrosis. No calcifications. PERITONEAL AND RIGHT PLEURAL SPACE: Large volume ascites. OTHER: No other significant findings. IMPRESSION: 1. Gall sludge as seen on prior CT. Gallbladder wall is thickened measuring 0.6 cm, a n onspecific finding in the setting of ascites. Negative sonographic Pizano sign. No biliary ductal d ilation. Findings are indeterminate for cholecystitis. 2. Large volume ascites. TECHNICAL DOCUMENTATION: JOB ID: [id number]- All Rights Reserved Reading location - IP/workstation name: [email or web address]
== END 2018-07-16 16:39 | disposition home or self-care (01) ==
LOC: ER 10:27
DX: K42.9 Umbilical hernia without obstruction or gangrene (principal); R10.33 Periumbilical pain; R18.8 Other ascites; K82.9 Disease of gallbladder, unspecified; C22.8 Malignant neoplasm of liver, primary, unspecified as to type; Z88.2 Allergy status to sulfonamides
CPT/HCPCS: 93005; 96376; 99291; 96361; 96374; 96375; 36415; 87040; 87086; 82962; 85025; 85610; 80053; 81001; 82803; 83605; 76705; 74177; 93010; J3010; J2405; J7120

== ENCOUNTER 2018-07-21 10:53 | Day surgery (SDC) | payer MEDICARE, MEDICAID ==
[~2018-07-21 10:53] MED LIST changes: +ALBUMIN HUMAN 75 GM/300 ML RTUINJ IV ONE; -ALBUMIN HUMAN 75 GM/300 ML RTUINJ IV PRN
[2018-07-21 11:35] LABS: PROTHROMBIN TIME 16.8 SEC (11.4-15.4)
[2018-07-21 11:36] LABS: HEMATOCRIT 34.2 % (37.9-51.0); HEMOGLOBIN 12.3 g/dL (13.5-17.0); MEAN CORPUSCULAR HEMOGLOBIN 36.9 pg (27.0-33.4); MEAN CORPUSCULAR HGB CONC 35.9 g/dL (32.0-36.0); MEAN CORPUSCULAR VOLUME 103 fl (80-97); PARTIAL THROMBOPLASTIN TIME 36.1 SEC (23.5-35.8); PLATELET COUNT 122 10^3/uL (150-450); RED BLOOD COUNT 3.32 10^6/uL (4.35-5.55); RED CELL DISTRIBUTION WIDTH 13.9 % (11.5-14.0); WHITE BLOOD COUNT 6.4 10^3/uL (4.0-10.5)
[2018-07-21 12:01] LABS: BLOOD UREA NITROGEN 13 mg/dL (7-20)
[2018-07-21 14:51] VITALS: BP 122/78
--- NOTE | 2018-07-21 15:33 | RADIOLOGY REPORT (SQ) ---
EXAM DESCRIPTION: U/S ABD PARACENTESIS COMPLETED DATE/TIME: 07/21/2018 2:54 pm REASON FOR STUDY: ASCITES COMPARISON 07/16/2018 LIMITATIONS: None. PROCEDURE: After obtaining informed consent, the patient was brought to the ultrasound suite. The p rocedure was performed with the patient on a gurney. Ultrasound was used to identify a prominent poc ket of ascites in the right lower quadrant. An appropriate access site was selected. The patient wa s prepped and draped in usual sterile fashion. The access site was anesthetized with 10 mL 1% lidoc fredi. A Ojdz-S-Rqkoijfr needle was advanced into the fluid. After aspiration of fluid the needle, t he catheter was advanced off the needle into the fluid. A total of 5,000 mL of zohra colored fluid w as removed. The patient tolerated the procedure well left the department in satisfactory condition. IMPRESSION: Successful ultrasound-guided paracentesis COMMENT: Patient medication list reviewed: Yes- Quality ID# [id number]:Eligible professional attests to doc umenting in the medical record they obtained, updated, or reviewed the patient's current medications. TECHNICAL DOCUMENTATION: JOB ID: [id number] [email or web address]- All Rights Reserved Reading location - IP/workstation name: [email or web address]
== END 2018-07-21 14:50 | disposition home or self-care (01) ==
LOC: RAD 10:53
PROVIDERS: ATTEND Internal Medicine Gastroenterology
DX: K70.31 Alcoholic cirrhosis of liver with ascites (principal); Z88.2 Allergy status to sulfonamides
CPT/HCPCS: 36415; 84520; 82565; 85027; 85610; 85730; 49083; P9047

== ENCOUNTER 2018-07-30 10:52 | Day surgery (SDC) | payer MEDICARE, MEDICAID ==
[2018-07-30] MEDS ORDERED: ALBUMIN HUMAN 12.5 GM/50 ML RTUINJ IV SCH (11:45)
[2018-07-30 11:54] LABS: HEMATOCRIT 33.4 % (37.9-51.0); HEMOGLOBIN 11.9 g/dL (13.5-17.0); MEAN CORPUSCULAR HEMOGLOBIN 36.4 pg (27.0-33.4); MEAN CORPUSCULAR HGB CONC 35.7 g/dL (32.0-36.0); MEAN CORPUSCULAR VOLUME 102 fl (80-97); RED BLOOD COUNT 3.28 10^6/uL (4.35-5.55); RED CELL DISTRIBUTION WIDTH 13.8 % (11.5-14.0); WHITE BLOOD COUNT 7.4 10^3/uL (4.0-10.5)
[2018-07-30 11:55] LABS: INTERNATIONAL RATION (INR) 1.41; PROTHROMBIN TIME 17.9 SEC (11.4-15.4)
[2018-07-30 11:56] LABS: PARTIAL THROMBOPLASTIN TIME 38.6 SEC (23.5-35.8)
[2018-07-30 12:11] LABS: BLOOD UREA NITROGEN 9 mg/dL (7-20)
[2018-07-30 12:16] LABS: PLATELET COUNT 75 10^3/uL (150-450)
[2018-07-30 14:25] VITALS: BP 128/79
[2018-07-30 14:25] LABS: FLUID APPEARANCE CLEAR; FLUID COLOR YELLOW; FLUID SOURCE ABDOMEN; FLUID TYPE PERITONEAL; FLUID VISCOSITY SLIGHTLY VISCOUS
--- NOTE | 2018-07-30 14:51 | RADIOLOGY REPORT (SQ) ---
EXAM DESCRIPTION: U/S ABD PARACENTESIS COMPLETED DATE/TIME: 07/30/2018 2:05 pm REASON FOR STUDY: ASCITES COMPARISON 07/21/2018 LIMITATIONS: None. PROCEDURE: After obtaining informed consent, the patient was brought to the ultrasound suite. The p rocedure was performed with the patient on a gurney. Ultrasound was used to identify a prominent poc ket of ascites in the right lower quadrant. An appropriate access site was selected. The patient wa s prepped and draped in usual sterile fashion. The access site was anesthetized with 3.5 mL 1% lido jay. A Xoel-Y-Fxlezcaq needle was advanced into the fluid. After aspiration of fluid the needle, the catheter was advanced off the needle into the fluid. A total of 8,000 mL of clear straw-colored fluid was removed. The patient tolerated the procedure well left the department in satisfactory condi tion. Fluid was sent for testing as per Dr. Han IMPRESSION: Successful ultrasound-guided paracentesis Laboratory studies are pending on the ascites fluid COMMENT: Patient medication list reviewed: Yes- Quality ID# [id number]:Eligible professional attests to doc umenting in the medical record they obtained, updated, or reviewed the patient's current medications. TECHNICAL DOCUMENTATION: JOB ID: [id number] [employer]- All Rights Reserved Reading location - IP/workstation name: [email or web address]
[2018-08-02 10:02] LABS: PATH REVIEW PATHOLOGIST REVIEWED
== END 2018-07-30 14:25 | disposition home or self-care (01) ==
LOC: RAD 10:52
PROVIDERS: ATTEND Internal Medicine Gastroenterology
DX: K70.31 Alcoholic cirrhosis of liver with ascites (principal)
CPT/HCPCS: 36415; 84520; 82565; 85027; 85610; 85730; 89050; 49083; P9047

== ENCOUNTER 2018-08-10 10:55 | Day surgery (SDC) | payer MEDICARE, MEDICAID ==
[2018-08-10 11:55] LABS: HEMATOCRIT 32.3 % (37.9-51.0); HEMOGLOBIN 11.9 g/dL (13.5-17.0); MEAN CORPUSCULAR HEMOGLOBIN 37.5 pg (27.0-33.4); MEAN CORPUSCULAR HGB CONC 36.9 g/dL (32.0-36.0); MEAN CORPUSCULAR VOLUME 102 fl (80-97); RED BLOOD COUNT 3.18 10^6/uL (4.35-5.55); RED CELL DISTRIBUTION WIDTH 14.9 % (11.5-14.0); WHITE BLOOD COUNT 5.6 10^3/uL (4.0-10.5)
[2018-08-10] MEDS ORDERED: ALBUMIN HUMAN 50 GM/200 ML RTUINJ IV PRN (11:56)
[2018-08-10 12:00] LABS: PARTIAL THROMBOPLASTIN TIME 39.6 SEC (23.5-35.8); PROTHROMBIN TIME 17.8 SEC (11.4-15.4)
[2018-08-10] MEDS ORDERED: ALBUMIN HUMAN 12.5 GM/50 ML RTUINJ IV SCH (12:00)
[2018-08-10 12:11] LABS: BLOOD UREA NITROGEN 10 mg/dL (7-20)
[2018-08-10 12:27] LABS: PLATELET COUNT 41 10^3/uL (150-450)
--- NOTE | 2018-08-10 15:34 | RADIOLOGY REPORT (SQ) ---
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 PROCEDURE: Procedure, risks, benefit, and alternative explained to patient who then gave written con sent. The right lower quadrant abdominal wall marked using ultrasound guidance. A time-out was call ed for correct marking verification. Abdomen prepped and draped using sterile technique. Local anest hesia achieved using 10 ml of 1% lidocaine injection. A 6fr Otqy-X-Xkptgsff set was introduced into the peritoneal cavity. Fluid was drained. The catheter was removed and entry site was covered with sterile bandage. No immediate complications noted. Images acquired during the procedure were stored on PACS. FINDINGS: ENTRY SITE: Right lower quadrant FLUID VOLUME: 8,000 cc FLUID ANALYSIS: Straw-colored OTHER: Fluid sent to the lab for testing. IMPRESSION: SUCCESSFUL ULTRASOUND GUIDED PARACENTESIS. COMMENT: Patient medication list reviewed:Yes- Quality ID# [id number]:Eligible professional attests to docu menting in the medical record they obtained, updated, or reviewed the patient's current medications. TECHNICAL DOCUMENTATION: JOB ID: [id number] [employer]- All Rights Reserved Reading location - IP/workstation name: [email or web address]
[2018-08-10 15:55] VITALS: BP 127/67
[2018-08-10 16:36] LABS: FLUID APPEARANCE SLIGHTLY HAZY; FLUID COLOR YELLOW; FLUID VISCOSITY SLIGHTLY VISCOUS
[2018-08-10 16:38] LABS: FLUID TYPE PERITONEAL
[2018-08-10 16:39] LABS: FLUID SOURCE ASCITES
== END 2018-08-10 15:30 | disposition home or self-care (01) ==
LOC: RAD 10:55
PROVIDERS: ATTEND Internal Medicine Gastroenterology
DX: K70.31 Alcoholic cirrhosis of liver with ascites (principal)
CPT/HCPCS: 36415; 84520; 82565; 85027; 85610; 85730; 89050; 49083; P9047

== ENCOUNTER 2018-08-12 10:41 | Emergency (ER) | payer MEDICARE, MEDICAID ==
--- NOTE | 2018-08-12 12:05 | ER Document Report ---
ED Medical Screen (RME) - General Chief Complaint: Abnormal Lab Results Stated Complaint: ABNORMAL LABS Time Seen by Provider: 08/12/18 11:57 Primary Care Provider: EUNICE ESPITIA MD [Primary Care Provider] - Follow up as needed Information source: Patient TRAVEL OUTSIDE OF THE [place] IN LAST 30 DAYS: No - HPI Notes: 08/12/18 11:59 Patient seen in triage for rapid medical evaluation. Patient is a 37-year-old male history of cirrhosis secondary to medication abnormalities, childhood meningitis and some alcohol use in the past. Patient was changed over from Lasix to Bumex 2 weeks ago, but is still on the same potassium pill. The patient comes in because his regular practitioner instructed that he had to come in for replacement potassium because he had a potassium level of 2.7 on a lab draw yesterday. Unaware of any other laboratory abnormalities. The patient describes a mild generalized weakness. No nausea, vomiting, chest pain, difficulty breathing, numbness. No fever or chills. The patient has had low potassiums in the past. Patient has not drank alcohol in over a year and a half. He denies any Abdominal swelling that would suggest ascites recurrence. On exam patient does have scleral icterus. He has rosacea on the face, which he states is unchanged. Neck nontender. Patient is clinically deaf, his mother is helping with signing. Cardiovascular regular rate and rhythm without appreciable gallop or rub. There is a 1/6 systolic ejection murmur. Lungs clear to auscultation bilaterally Abdomen soft no gross ascites. Umbilical hernia which is easily reduced. Nontender. Extremities no edema. Neuro grossly alert and interactive. No deficits identified. Plan lab work I have the patient may need potassium replacement if confirmed. Please see patient's further care and disposition per partners note. 08/12/18 12:03 - Related Data Allergies/Adverse Reactions: Sulfa (Sulfonamide Antibiotics) Allergy (Verified 08/12/18 11:19) Past Medical History - Social History Chew tobacco use (# tins/day): No Frequency of alcohol use: None Drug Abuse: None - Past Medical History Cardiac Medical History: Denies: Hx Coronary Artery Disease, Hx Heart Attack, Hx Hypertension Pulmonary Medical History: Denies: Hx Asthma, Hx Bronchitis, Hx COPD, Hx Pneumonia Neurological Medical History: Reports: Hx Seizures - 2 YEARS AGO. Denies: Hx Cerebrovascular Accident Renal/ Medical History: Denies: Hx Peritoneal Dialysis GI Medical History: Reports: Hx Cirrhosis, Hx Liver Failure Musculoskeltal Medical History: Denies Hx Arthritis Past Surgical History: Reports: Hx Oral Surgery, Hx Orthopedic Surgery - Immunizations Hx Diphtheria, Pertussis, Tetanus Vaccination: Yes History of Influenza Vaccine for 02/2017 - 07/2017 Season: Refused Physical Exam - Vital signs Vitals: Temp Pulse Resp BP Pulse Ox 98.6 F 108 H 16 142/76 H 100 08/12/18 10:49 08/12/18 10:49 08/12/18 10:49 08/12/18 10:49 08/12/18 10:49 Course - Vital Signs Vital signs: Temp Pulse Resp BP Pulse Ox 98.6 F 108 H 16 142/76 H 100 08/12/18 10:49 08/12/18 10:49 08/12/18 10:49 08/12/18 10:49 08/12/18 10:49 Doctor's Discharge - Discharge Referrals: EUNICE ESPITIA MD [Primary Care Provider] - Follow up as needed
[2018-08-12 12:32] LABS: ABSOLUTE BASOPHILS # (AUTO) 0.1 10^3/uL (0.0-0.2); ABSOLUTE LYMPHOCYTES (AUTO) 0.8 10^3/uL (0.5-4.7); ABSOLUTE MONOCYTES (AUTO) 0.6 10^3/uL (0.1-1.4); ABSOLUTE NEUT (AUTO) 5.3 10^3/uL (1.7-8.2); BASOPHILS % (AUTO) 0.9 % (0-2); EOSINOPHILS % (AUTO) 0.5 % (0-6); HEMATOCRIT 32.8 % (37.9-51.0); LYMPHOCYTES % (AUTO) 11.2 % (13-45); MEAN CORPUSCULAR HEMOGLOBIN 37.5 pg (27.0-33.4); MEAN CORPUSCULAR HGB CONC 36.6 g/dL (32.0-36.0); MEAN CORPUSCULAR VOLUME 102 fl (80-97); MONOCYTES % (AUTO) 8.6 % (3-13); RED CELL DISTRIBUTION WIDTH 14.6 % (11.5-14.0); SEGMENTED NEUTROPHILS % (AUTO) 78.8 % (42-78); TOTAL CELLS COUNTED % (AUTO) 100 %; WHITE BLOOD COUNT 6.7 10^3/uL (4.0-10.5)
[2018-08-12 12:49] LABS: PLATELET COUNT 44 10^3/uL (150-450)
[2018-08-12 12:50] LABS: ALANINE AMINOTRANSFERASE 35 U/L (21-72); ALBUMIN 3.6 g/dL (3.5-5.0); ALKALINE PHOSPHATASE 116 U/L (38-126); ANION GAP 12 (5-19); ASPARTATE AMINO TRANSFERASE 53 U/L (17-59); BILIRUBIN,DIRECT 2.5 mg/dL (0.0-0.4); BILIRUBIN,TOTAL 7.4 mg/dL (0.2-1.3); BLOOD UREA NITROGEN 20 mg/dL (7-20); CALCIUM 8.6 mg/dL (8.4-10.2); CARBON DIOXIDE 34 mmol/L (22-30); CHLORIDE 85 mmol/L (98-107); GLUCOSE 108 mg/dL (75-110); SODIUM 130.9 mmol/L (137-145); TOTAL PROTEIN 6.8 g/dL (6.3-8.2)
[2018-08-12 12:54] LABS: POTASSIUM 2.9 mmol/L (3.6-5.0)
[2018-08-12] MEDS ORDERED: POTASSI CL 20 MEQ/50 ML RIDER 20 MEQ/50 ML RTUPB IV ONE (12:56)
[2018-08-12] MEDS ORDERED: POTASSIUM CHLORIDE 20 MEQ/15 ML UDCUP PO ONE (12:58)
[2018-08-12] MEDS ORDERED: POTASSIUM CHLORIDE 20 MEQ/15 ML UDCUP ONE (13:26)
[2018-08-12 16:02] VITALS: BP 127/79
--- NOTE | 2018-08-12 18:02 | ER Document Report ---
Entered by ARY MIRANDA SCRIBE 08/12/18 8050 Acting as scribe for:JOLLY BRUNSON MD ED General - General Chief Complaint: Abnormal Lab Results Stated Complaint: ABNORMAL LABS Time Seen by Provider: 08/12/18 11:57 Primary Care Provider: EUNICE ESPITIA MD [Primary Care Provider] - Follow up as needed Mode of Arrival: Ambulatory Information source: Patient, Parent, [facility] Records Notes: 37 year old male with known liver disease that presents to the emergency department today with complaints of a low potassium during outpatient labs. Lanie wilson had 5L of fluid removed from his abdomen on 07/21, 8L removed on 07/30, and 8L on 08/10. Patient states his only symptom currently is feeling generally fatigued. TRAVEL OUTSIDE OF THE [place] IN LAST 30 DAYS: No - Related Data Allergies/Adverse Reactions: Sulfa (Sulfonamide Antibiotics) Allergy (Verified 08/12/18 11:19) Past Medical History - General Information source: Patient - Social History Smoking Status: Never Smoker Cigarette use (# per day): No Chew tobacco use (# tins/day): No Frequency of alcohol use: None Drug Abuse: None Lives with: Family Family History: Reviewed & Not Pertinent Patient has suicidal ideation: No Patient has homicidal ideation: No Neurological Medical History: Reports: Hx Seizures - 2 YEARS AGO GI Medical History: Reports: Hx Cirrhosis, Hx Liver Failure Past Surgical History: Reports: Hx Oral Surgery, Hx Orthopedic Surgery - Immunizations Hx Diphtheria, Pertussis, Tetanus Vaccination: Yes Hx Pneumococcal Vaccination: 05/25/16 Review of Systems - Review of Systems Constitutional: See HPI, Other - lower potassium in outpatient labs, feels generally fatigued EENT: No symptoms reported Cardiovascular: No symptoms reported Respiratory: No symptoms reported Gastrointestinal: No symptoms reported Genitourinary: No symptoms reported Male Genitourinary: No symptoms reported Musculoskeletal: No symptoms reported Skin: No symptoms reported Hematologic/Lymphatic: No symptoms reported Neurological/Psychological: No symptoms reported -: Yes All other systems reviewed and negative Physical Exam - Vital signs Vitals: Temp Pulse Resp BP Pulse Ox 98.6 F 108 H 16 142/76 H 100 08/12/18 10:49 08/12/18 10:49 08/12/18 10:49 08/12/18 10:49 08/12/18 10:49 - Notes Notes: Physical Exam: General: Alert, appears well. HEENT: Normocephalic. Atraumatic. PERRL. Extraocular movements intact. Oropharynx clear. Neck: Supple. Non-tender. Respiratory: No respiratory distress. Clear and equal breath sounds bilaterally. Cardiovascular: Regular rate and rhythm. Abdominal: Normal Inspection. Non-tender. No distension. Normal Bowel Sounds. Back: Non-tender. No deformity or step off. Extremities: Moves all four extremities. Upper extremities: Normal inspection. Normal ROM. Lower extremities: Normal inspection. No edema. Normal ROM. Neurological: Normal cognition. AAOx4. Normal speech. Psychological: Normal affect. Normal Mood. Skin: Warm. Dry. Normal color. Course - Vital Signs Vital signs: Temp Pulse Resp BP Pulse Ox 98.8 F 108 H 21 H 127/79 H 100 08/12/18 16:02 08/12/18 10:49 08/12/18 16:00 08/12/18 15:00 08/12/18 16:00 - Laboratory Result Diagrams: 08/12/18 12:09 08/12/18 12:09 Laboratory results interpreted by me: 08/12/18 08/12/18 12:09 12:09 RBC 3.20 L Hgb 12.0 L Hct 32.8 L MCV 102 H MCH 37.5 H MCHC 36.6 H RDW 14.6 H Plt Count 44 L Seg Neutrophils % 78.8 H Lymphocytes % 11.2 L Sodium 130.9 L Potassium 2.9 L* Chloride 85 L Carbon Dioxide 34 H Magnesium 1.4 L Total Bilirubin 7.4 H Direct Bilirubin 2.5 H Discharge - Discharge Clinical Impression: Hypokalemia I personally performed the services described in the documentation, reviewed and edited the documentation which was dictated to the scribe in my presence, and it accurately records my words and actions.
== END 2018-08-12 16:38 | disposition home or self-care (01) ==
LOC: ER 10:41
DX: E87.6 Hypokalemia (principal); K76.9 Liver disease, unspecified; Z88.2 Allergy status to sulfonamides
CPT/HCPCS: 99283; 96365; 96366; 36415; 82140; 83735; 85025; 80053; A9270; J3480

== ENCOUNTER 2018-08-20 10:51 | Day surgery (SDC) | payer MEDICARE, MEDICAID ==
[2018-08-20 11:23] LABS: HEMATOCRIT 33.9 % (37.9-51.0); MEAN CORPUSCULAR HEMOGLOBIN 36.8 pg (27.0-33.4); MEAN CORPUSCULAR HGB CONC 35.5 g/dL (32.0-36.0); MEAN CORPUSCULAR VOLUME 104 fl (80-97); PLATELET COUNT 110 10^3/uL (150-450); RED BLOOD COUNT 3.27 10^6/uL (4.35-5.55); RED CELL DISTRIBUTION WIDTH 14.3 % (11.5-14.0); WHITE BLOOD COUNT 5.1 10^3/uL (4.0-10.5)
[2018-08-20 11:27] LABS: INTERNATIONAL RATION (INR) 1.22
[2018-08-20 11:28] LABS: PARTIAL THROMBOPLASTIN TIME 37.1 SEC (23.5-35.8)
[2018-08-20 11:42] LABS: BLOOD UREA NITROGEN 9 mg/dL (7-20)
[2018-08-20] MEDS ORDERED: ALBUMIN HUMAN 50 GM/200 ML RTUINJ IV PRN (12:30)
--- NOTE | 2018-08-20 15:13 | RADIOLOGY REPORT (SQ) ---
EXAM DESCRIPTION: U/S ABD PARACENTESIS COMPLETED DATE/TIME: 08/20/2018 3:00 pm REASON FOR STUDY: ASCITES K70.31 ALCOHOLIC CIRRHOSIS OF LIVER WITH ASCITES COMPARISON: None. LIMITATIONS: None. PROCEDURE: Procedure, risks, benefit, and alternative explained to patient who then gave written con sent. The left lower abdominal wall marked using ultrasound guidance. A time-out was called for cor rect marking verification. Abdomen prepped and draped using sterile technique. Local anesthesia achi eved using 3.0 ml of 1% lidocaine injection. A 6fr Dqua-A-Ntrljzuw set was introduced into the perit tristan cavity. Fluid was drained. The catheter was removed and entry site was covered with sterile b andage. No immediate complications noted. Images acquired during the procedure were stored on PACS. FINDINGS: ENTRY SITE: Left lower quadrant FLUID VOLUME: 6,500 FLUID ANALYSIS: Straw OTHER: Fluid sent to the lab for testing. IMPRESSION: SUCCESSFUL ULTRASOUND GUIDED PARACENTESIS. COMMENT: Patient medication list reviewed:Yes- Quality ID# [id number]:Eligible professional attests to docu menting in the medical record they obtained, updated, or reviewed the patient's current medications. TECHNICAL DOCUMENTATION: JOB ID: [id number] [employer]- All Rights Reserved Reading location - IP/workstation name: [email or web address]
[2018-08-20 15:31] LABS: FLUID APPEARANCE SLIGHTLY HAZY; FLUID COLOR YELLOW; FLUID SOURCE ASCITES; FLUID TYPE PERITONEAL; FLUID VISCOSITY LIQUID
[2018-08-20 15:41] VITALS: BP 107/64
== END 2018-08-20 15:35 | disposition home or self-care (01) ==
LOC: RAD 10:51
PROVIDERS: ATTEND Internal Medicine Gastroenterology
DX: K70.31 Alcoholic cirrhosis of liver with ascites (principal); Z88.2 Allergy status to sulfonamides
CPT/HCPCS: 36415; 84520; 82565; 85027; 85610; 85730; 89050; 49083; P9047

== ENCOUNTER 2018-08-30 10:59 | Day surgery (SDC) | payer MEDICARE, MEDICAID ==
[~2018-08-30 10:59] MED LIST changes: +ALBUMIN HUMAN 50 GM/200 ML RTUINJ IV PRN; -ALBUMIN HUMAN 75 GM/300 ML RTUINJ IV ONE
[2018-08-30 11:49] LABS: HEMATOCRIT 35.2 % (37.9-51.0); HEMOGLOBIN 12.2 g/dL (13.5-17.0); MEAN CORPUSCULAR HEMOGLOBIN 35.7 pg (27.0-33.4); MEAN CORPUSCULAR HGB CONC 34.7 g/dL (32.0-36.0); MEAN CORPUSCULAR VOLUME 103 fl (80-97); RED BLOOD COUNT 3.42 10^6/uL (4.35-5.55); RED CELL DISTRIBUTION WIDTH 14.4 % (11.5-14.0); WHITE BLOOD COUNT 5.7 10^3/uL (4.0-10.5)
[2018-08-30 11:52] LABS: INTERNATIONAL RATION (INR) 1.31
[2018-08-30 11:53] LABS: PARTIAL THROMBOPLASTIN TIME 38.3 SEC (23.5-35.8)
[2018-08-30 12:00] LABS: BLOOD UREA NITROGEN 9 mg/dL (7-20)
[2018-08-30 12:32] LABS: PLATELET COUNT 86 10^3/uL (150-450)
[2018-08-30 15:22] VITALS: BP 121/68
[2018-08-30 16:36] LABS: FLUID TYPE PERITONEAL
[2018-08-30 16:37] LABS: FLUID APPEARANCE CLEAR; FLUID COLOR YELLOW; FLUID SOURCE ASCITES; FLUID VISCOSITY LIQUID
--- NOTE | 2018-08-30 16:47 | RADIOLOGY REPORT (SQ) ---
EXAM DESCRIPTION: U/S ABD PARACENTESIS COMPLETED DATE/TIME: 08/30/2018 3:37 pm REASON FOR STUDY: ASCITES COMPARISON 08/20/2018 LIMITATIONS: None. PROCEDURE: After obtaining informed consent, the patient was brought to the ultrasound suite. The p rocedure was performed with the patient on a gurney. Ultrasound was used to identify a prominent poc ket of ascites in the right lower quadrant. An appropriate access site was selected. The patient wa s prepped and draped in usual sterile fashion. The access site was anesthetized with 6 mL 1% lidoca ine. A Idme-Z-Jzsukqny needle was advanced into the fluid. After aspiration of fluid the needle, th e catheter was advanced off the needle into the fluid. A total of 8,000 mL of clear yellow fluid was removed. The patient tolerated the procedure well left the department in satisfactory condition. Fluid was sent for laboratory testing, results are pending IMPRESSION: Successful ultrasound-guided diagnostic and therapeutic paracentesis COMMENT: Patient medication list reviewed: Yes- Quality ID# [id number]:Eligible professional attests to doc umenting in the medical record they obtained, updated, or reviewed the patient's current medications. TECHNICAL DOCUMENTATION: JOB ID: [id number] [employer]- All Rights Reserved Reading location - IP/workstation name: [email or web address]
== END 2018-08-30 15:40 | disposition home or self-care (01) ==
LOC: RAD 10:59
PROVIDERS: ATTEND Internal Medicine Gastroenterology
DX: K70.31 Alcoholic cirrhosis of liver with ascites (principal)
CPT/HCPCS: 36415; 84520; 82565; 85027; 85610; 85730; 89050; 49083; P9047

== ENCOUNTER 2018-09-08 11:54 | Day surgery (SDC) | payer MEDICARE, MEDICAID ==
[~2018-09-08 11:54] MED LIST changes: +ALBUMIN HUMAN 12.5 GM/50 ML RTUINJ IV PRN; +ALBUMIN HUMAN 25% RTU INJ 12.5 GM/50 ML RTUINJ IV PRN
[2018-09-08 13:25] LABS: PROTHROMBIN TIME 17.8 SEC (11.4-15.4)
[2018-09-08 13:26] LABS: PARTIAL THROMBOPLASTIN TIME 39.2 SEC (23.5-35.8)
[2018-09-08 13:32] LABS: BLOOD UREA NITROGEN 6 mg/dL (7-20)
[2018-09-08 14:16] LABS: HEMATOCRIT 32.6 % (37.9-51.0); HEMOGLOBIN 11.8 g/dL (13.5-17.0); MEAN CORPUSCULAR HEMOGLOBIN 35.6 pg (27.0-33.4); MEAN CORPUSCULAR HGB CONC 36.1 g/dL (32.0-36.0); RED CELL DISTRIBUTION WIDTH 13.9 % (11.5-14.0); WHITE BLOOD COUNT 5.1 10^3/uL (4.0-10.5)
[2018-09-08 14:50] LABS: MEAN CORPUSCULAR VOLUME 99 fl (80-97)
[2018-09-08 14:54] LABS: PLATELET COUNT 57 10^3/uL (150-450)
[2018-09-08 16:43] LABS: FLUID SOURCE ABDOMEN
[2018-09-08 16:44] LABS: FLUID APPEARANCE CLEAR; FLUID COLOR YELLOW; FLUID VISCOSITY LIQUID
[2018-09-08 16:49] VITALS: BP 115/60
--- NOTE | 2018-09-09 08:34 | RADIOLOGY REPORT (SQ) ---
EXAM DESCRIPTION: U/S ABD PARACENTESIS COMPLETED DATE/TIME: 09/08/2018 5:03 pm REASON FOR STUDY: ASCITES K70.31 ALCOHOLIC CIRRHOSIS OF LIVER WITH ASCITES COMPARISON: 08/30/2018 paracentesis RADIATION DOSE: None LIMITATIONS: None. PROCEDURE: Procedure, risks, benefit, and alternative explained to patient who then gave written con sent. The right lower abdominal wall marked using ultrasound guidance. A time-out was called for co rrect marking verification. Abdomen prepped and draped using sterile technique. Local anesthesia ach ieved using 7 ml of 1% lidocaine injection. A 6fr Zxeg-E-Eajkrtuw set was introduced into the perito alison cavity. Fluid was drained. The catheter was removed and entry site was covered with sterile ba ndage. No immediate complications noted. Images acquired during the procedure were stored on PACS. FINDINGS: ENTRY SITE: Right lower quadrant FLUID VOLUME: 8 L FLUID ANALYSIS: Clear straw-colored fluid. OTHER: Fluid sent to the lab for testing. IMPRESSION: SUCCESSFUL ULTRASOUND GUIDED PARACENTESIS. COMMENT: Patient medication list reviewed:Yes- Quality ID# [id number]:Eligible professional attests to docu menting in the medical record they obtained, updated, or reviewed the patient's current medications. TECHNICAL DOCUMENTATION: JOB ID: [id number] [employer]- All Rights Reserved Reading location - IP/workstation name: [email or web address]
== END 2018-09-08 16:48 | disposition home or self-care (01) ==
LOC: RAD 11:54
PROVIDERS: ATTEND Internal Medicine Gastroenterology
DX: K70.31 Alcoholic cirrhosis of liver with ascites (principal)
CPT/HCPCS: 36415; 84520; 82565; 85027; 85610; 85730; 89050; 49083; P9047

== ENCOUNTER 2018-09-27 06:48 | Day surgery (SDC) | payer MEDICARE, MEDICAID ==
[2018-09-27 07:39] LABS: ABSOLUTE BASOPHILS # (AUTO) 0.1 10^3/uL (0.0-0.2); ABSOLUTE EOSINOPHILS # (AUTO) 0.2 10^3/uL (0.0-0.6); ABSOLUTE LYMPHOCYTES (AUTO) 1.2 10^3/uL (0.5-4.7); ABSOLUTE MONOCYTES (AUTO) 0.2 10^3/uL (0.1-1.4); BASOPHILS % (AUTO) 1.2 % (0-2); HEMATOCRIT 35.2 % (37.9-51.0); HEMOGLOBIN 12.1 g/dL (13.5-17.0); MEAN CORPUSCULAR HEMOGLOBIN 34.4 pg (27.0-33.4); MEAN CORPUSCULAR HGB CONC 34.4 g/dL (32.0-36.0); MEAN CORPUSCULAR VOLUME 100 fl (80-97); MONOCYTES % (AUTO) 5.3 % (3-13); RED BLOOD COUNT 3.52 10^6/uL (4.35-5.55); RED CELL DISTRIBUTION WIDTH 13.7 % (11.5-14.0); SEGMENTED NEUTROPHILS % (AUTO) 62.5 % (42-78); TOTAL CELLS COUNTED % (AUTO) 100 %; WHITE BLOOD COUNT 4.7 10^3/uL (4.0-10.5)
[2018-09-27 07:40] LABS: INTERNATIONAL RATION (INR) 1.41
[2018-09-27 07:54] LABS: BLOOD UREA NITROGEN 9 mg/dL (7-20)
[2018-09-27 08:04] LABS: PLATELET COUNT 89 10^3/uL (150-450)
[2018-09-27] MEDS ORDERED: ALBUMIN HUMAN 50 GM/200 ML RTUINJ IV PRN (11:33)
[2018-09-27 12:17] LABS: FLUID APPEARANCE HAZY; FLUID COLOR YELLOW; FLUID SOURCE ASCITES; FLUID TYPE PERITONEAL
[2018-09-27 12:18] LABS: FLUID VISCOSITY LIQUID
--- NOTE | 2018-09-27 13:28 | RADIOLOGY REPORT (SQ) ---
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 LIMITATIONS: None. PROCEDURE: Procedure, risks, benefit, and alternative explained to patient who then gave written con sent. The right lower abdominal wall marked using ultrasound guidance. A time-out was called for co rrect marking verification. Abdomen prepped and draped using sterile technique. Local anesthesia ach ieved using 3.0 ml of 1% lidocaine injection. A 6fr Zuji-F-Kiraxdvo set was introduced into the winter toneal cavity. Fluid was drained. The catheter was removed and entry site was covered with sterile bandage. No immediate complications noted. Images acquired during the procedure were stored on PACS. FINDINGS: ENTRY SITE: Right lower quadrant. FLUID VOLUME: 7250 cc FLUID ANALYSIS: Straw OTHER: Fluid sent to the lab for testing. IMPRESSION: SUCCESSFUL ULTRASOUND GUIDED PARACENTESIS. COMMENT: Patient medication list reviewed:Yes- Quality ID# [id number]:Eligible professional attests to docu menting in the medical record they obtained, updated, or reviewed the patient's current medications. TECHNICAL DOCUMENTATION: JOB ID: [id number] [employer]- All Rights Reserved Reading location - IP/workstation name: [email or web address]
[2018-09-27 14:09] VITALS: BP 124/80
== END 2018-09-27 13:40 | disposition home or self-care (01) ==
LOC: RAD 06:48
PROVIDERS: ATTEND Internal Medicine Gastroenterology
DX: K70.31 Alcoholic cirrhosis of liver with ascites (principal); Z79.899 Other long term (current) drug therapy; Z79.01 Long term (current) use of anticoagulants
CPT/HCPCS: 36415; 84520; 82565; 85025; 85610; 85730; 89050; 49083; P9047

== ENCOUNTER 2018-10-08 11:48 | Day surgery (SDC) | payer MEDICARE, MEDICAID ==
[2018-10-08 12:32] LABS: HEMATOCRIT 33.5 % (37.9-51.0); HEMOGLOBIN 11.8 g/dL (13.5-17.0); MEAN CORPUSCULAR HEMOGLOBIN 34.8 pg (27.0-33.4); MEAN CORPUSCULAR HGB CONC 35.1 g/dL (32.0-36.0); MEAN CORPUSCULAR VOLUME 99 fl (80-97); RED BLOOD COUNT 3.37 10^6/uL (4.35-5.55); RED CELL DISTRIBUTION WIDTH 15.1 % (11.5-14.0); WHITE BLOOD COUNT 5.1 10^3/uL (4.0-10.5)
[2018-10-08 12:35] LABS: INTERNATIONAL RATION (INR) 1.46; PROTHROMBIN TIME 18.4 SEC (11.4-15.4)
[2018-10-08 12:36] LABS: PARTIAL THROMBOPLASTIN TIME 36.6 SEC (23.5-35.8)
[2018-10-08 12:51] LABS: PLATELET COUNT 39 10^3/uL (150-450)
[2018-10-08 12:53] LABS: BLOOD UREA NITROGEN 14 mg/dL (7-20)
[2018-10-08] MEDS ORDERED: ALBUMIN HUMAN 50 GM/200 ML RTUINJ IV PRN (13:00)
--- NOTE | 2018-10-08 14:57 | RADIOLOGY REPORT (SQ) ---
EXAM DESCRIPTION: U/S ABD PARACENTESIS COMPLETED DATE/TIME: 10/08/2018 2:30 pm REASON FOR STUDY: ASCITES COMPARISON 09/27/2018, 09/17/2018 LIMITATIONS: None. PROCEDURE: After obtaining informed consent, the patient was brought to the ultrasound suite. The p rocedure was performed with the patient on a gurney. Ultrasound was used to identify a prominent poc ket of ascites in the right lower quadrant. An appropriate access site was selected. The patient wa s prepped and draped in usual sterile fashion. The access site was anesthetized with 9 mL 1% lidoca ine. A Xioe-J-Taqileyt needle was advanced into the fluid. After aspiration of fluid the needle, th e catheter was advanced off the needle into the fluid. A total of 4,000 mL of clear yellow fluid was removed. The patient tolerated the procedure well left the department in satisfactory condition. IMPRESSION: Successful ultrasound-guided therapeutic paracentesis COMMENT: Patient medication list reviewed: Yes- Quality ID# [id number]:Eligible professional attests to doc umenting in the medical record they obtained, updated, or reviewed the patient's current medications. TECHNICAL DOCUMENTATION: JOB ID: [id number] [employer]- All Rights Reserved Reading location - IP/workstation name: [email or web address]
[2018-10-08 15:36] VITALS: BP 123/70
== END 2018-10-08 15:34 | disposition home or self-care (01) ==
LOC: RAD 11:48
PROVIDERS: ATTEND Internal Medicine Gastroenterology
DX: K70.31 Alcoholic cirrhosis of liver with ascites (principal); Z88.2 Allergy status to sulfonamides
CPT/HCPCS: 36415; 84520; 82565; 85027; 85610; 85730; 49083; P9047

== ENCOUNTER → 2019-02-04 | Day surgery (SDC) | payer MEDICARE, MEDICAID ==
[~2019-02-04] MED LIST changes: -ALBUMIN HUMAN 12.5 GM/50 ML RTUINJ IV PRN; -ALBUMIN HUMAN 25% RTU INJ 12.5 GM/50 ML RTUINJ IV PRN
[2019-02-04 08:00] VITALS: BP 129/85
[2019-02-04 08:15] LABS: HEMATOCRIT 31.7 % (37.9-51.0); HEMOGLOBIN 10.8 g/dL (13.5-17.0); MEAN CORPUSCULAR HEMOGLOBIN 32.9 pg (27.0-33.4); MEAN CORPUSCULAR HGB CONC 34.1 g/dL (32.0-36.0); MEAN CORPUSCULAR VOLUME 96 fl (80-97); RED BLOOD COUNT 3.29 10^6/uL (4.35-5.55); WHITE BLOOD COUNT 3.5 10^3/uL (4.0-10.5)
[2019-02-04 08:19] LABS: INTERNATIONAL RATION (INR) 1.52; PARTIAL THROMBOPLASTIN TIME 40.1 SEC (23.5-35.8); PROTHROMBIN TIME 18.5 SEC (11.4-15.4)
[2019-02-04 08:35] LABS: BLOOD UREA NITROGEN 12 mg/dL (7-20)
[2019-02-07 09:36] LABS: PLATELET COUNT 22 10^3/uL (150-450)
[2019-02-08 13:35] LABS: PATH REVIEW PATHOLOGIST REVIEWED
== END ==
LOC: RAD 07:40
PROVIDERS: ATTEND Internal Medicine Gastroenterology
DX: K70.31 Alcoholic cirrhosis of liver with ascites (principal)
CPT/HCPCS: 36415; 82565; 84520; 85027; 85610; 85730; P9047

== ENCOUNTER 2019-02-10 02:47 | Emergency (ER) | payer MEDICARE, MEDICAID ==
[2019-02-10 03:39] LABS: ABSOLUTE LYMPHOCYTES (AUTO) 0.6 10^3/uL (0.5-4.7); ABSOLUTE MONOCYTES (AUTO) 0.7 10^3/uL (0.1-1.4); ABSOLUTE NEUT (AUTO) 5.5 10^3/uL (1.7-8.2); BASOPHILS % (AUTO) 0.4 % (0-2); EOSINOPHILS % (AUTO) 0.4 % (0-6); HEMATOCRIT 26.9 % (37.9-51.0); HEMOGLOBIN 9.4 g/dL (13.5-17.0); LYMPHOCYTES % (AUTO) 8.2 % (13-45); MEAN CORPUSCULAR HEMOGLOBIN 33.5 pg (27.0-33.4); MEAN CORPUSCULAR HGB CONC 34.8 g/dL (32.0-36.0); MEAN CORPUSCULAR VOLUME 96 fl (80-97); MONOCYTES % (AUTO) 9.9 % (3-13); RED BLOOD COUNT 2.79 10^6/uL (4.35-5.55); SEGMENTED NEUTROPHILS % (AUTO) 81.1 % (42-78); TOTAL CELLS COUNTED % (AUTO) 100 %; WHITE BLOOD COUNT 6.8 10^3/uL (4.0-10.5)
[2019-02-10 03:43] LABS: ALBUMIN 3.8 g/dL (3.5-5.0); ALKALINE PHOSPHATASE 91 U/L (38-126); ANION GAP 13 (5-19); ASPARTATE AMINO TRANSFERASE 164 U/L (17-59); BILIRUBIN,DIRECT 4.3 mg/dL (0.0-0.4); BILIRUBIN,TOTAL 8.6 mg/dL (0.2-1.3); BLOOD UREA NITROGEN 18 mg/dL (7-20); CALCIUM 8.7 mg/dL (8.4-10.2); CARBON DIOXIDE 27 mmol/L (22-30); CHLORIDE 90 mmol/L (98-107); GLUCOSE 119 mg/dL (75-110); POTASSIUM 3.8 mmol/L (3.6-5.0); TOTAL PROTEIN 6.7 g/dL (6.3-8.2)
--- NOTE | 2019-02-10 03:49 | ER Document Report ---
ED Seizure - General Chief Complaint: Probable Seizure Stated Complaint: WEAKNESS/POSSIBLE SIEZURE Time Seen by Provider: 02/10/19 03:49 Primary Care Provider: JORDON BARTH PA-C [Primary Care Provider] - Follow up as needed Mode of Arrival: Ambulatory Information source: Patient, Relative Notes: HISTORY OF PRESENT ILLNESS: Patient is a 38-year-old male with a past medical history of alcoholic cirrhosis currently on the transplant list, pediatric meningitis with resulting deafness, and seizure disorder currently off medications who presents with recurrent seizure activity after an episode of emesis immediately prior to arrival. Patient and family report that the patient had a mechanical fall 2 days ago, fell forward and hit his face, did not present to the emergency department at that time. Today he had an episode of full body shaking consistent with his known history of seizures after an episode of emesis. Episode lasted approximately 30 to 45 seconds, short postictal period with confusion, patient is now back to his baseline mentally. Location: Head Onset: Prior to arrival Provocation: Vomiting Quality: Shaking, nausea Radiation: None Severity: Moderate Timing: As approximately 45 seconds History of headaches: None Recent head injury: Patient fell 2 days ago Vision changes: None Trouble walking: None Associated symptoms: Denies vision changes, no fevers or chills, no confusion or disorientation, no ataxia REVIEW OF SYSTEMS: CONSTITUTIONAL : Denies fever or chills, no sweats. Denies recent illness. EENT: Denies eye, ear, throat, or mouth pain or symptoms. Denies nasal or sinus congestion. CARDIOVASCULAR: Denies chest pain. RESPIRATORY: Denies cough, cold, or chest congestion. Denies shortness of breath, difficulty breathing, or wheezing. GASTROINTESTINAL: Denies abdominal pain. Denies nausea, vomiting, or diarrhea. Denies constipation. GENITOURINARY: Denies difficulty urinating, painful urination, burning, frequency, or blood in urine. MUSCULOSKELETAL: Denies body aches. Denies neck or back pain or joint pain or swelling. SKIN: Denies rash or skin lesions. HEMATOLOGIC : Denies easy bruising or bleeding. LYMPHATIC: Denies swollen, enlarged glands. NEUROLOGICAL: Positive for seizure activity. Denies altered mental status or loss of consciousness. Denies weakness or paralysis or loss of use of either side. Denies problems with gait or speech. Denies sensory or motor loss. PSYCHIATRIC: Denies anxiety or stress or depression. All other systems reviewed and negative. PHYSICAL EXAMINATION: GENERAL: Well-appearing, well-nourished and in no acute distress. HEAD: Diffuse abrasions and ecchymoses to the forehead and the cheeks. Normocephalic. No scalp deformity, depression, or crepitance. EYES: Pupils are 3 mm and equal/round/reactive to light, extraocular movements intact, anicteric sclera. Conjunctiva are normal. ENT: Nares patent bilaterally, oropharynx clear without exudates or palatal petechia. Moist mucous membranes. No tonsil hypertrophy. NECK: Normal range of motion, supple without lymphadenopathy. LUNGS: Breath sounds present, equal, and clear to auscultation bilaterally. No wheezes, rales, or rhonchi. HEART: Regular rate and rhythm without murmurs, rubs, or gallops. 2+ peripheral pulses. Normal capillary refill. ABDOMEN: Soft, nontender, nondistended. Normoactive bowel sounds. No guarding, no rebound. No masses appreciated. BACK: Normal contour, no midline tenderness. Rectal exam deferred. GENITAL/PELVC: Deferred. EXTREMITIES: Normal range of motion, no pitting or edema. No cyanosis. Diffuse bruising of the bilateral lower extremities. NEUROLOGICAL: No focal neurological deficits. Cranial nerves III-XII grossly intact. Moves all extremities spontaneously and on command. PSYCH: Normal mood, normal affect. No suicidal thoughts/ideations. No leila icidal thoughts/ideations. No hallucinations. SKIN: Warm, dry, normal turgor, no rashes or lesions noted. ASSESSMENT AND PLAN: This patient is a 38-year-old male who presents with reported seizure activity after episode of vomiting following a mechanical fall from 2 days ago. Patient has known history of cirrhosis with liver failure on the transplant list. Family reports his platelet count was "20,000" last time he was at his doctor's appointment. 1. Will obtain labs, CT head, ammonia, VBG, and reassess. 2. Will observe overnight. - HPI Patient complains to provider of: History of seizures Quality of pain: No pain Severity: Mild Pain Level: Denies Continued on arrival to ED: No Can details of seizure be obtained/verified: Yes Episode witnessed (by whom): Yes - Family Current seizure medications: Other - None Preceding symptoms/context: denies: Recent illness/fever, Recent alcohol intake, Recent drug use, Sleep deprivation, Missed dose of meds, Changed meds or dosage, Somnolence, Other History of: Other - Meningitis as a child Character of seizure: Complete loss/conscious, Generalized shaking Post-ictal symptoms: None Injuries: None Associated Symptoms: Confusion, Loss consciousness - Related Data Allergies/Adverse Reactions: Sulfa (Sulfonamide Antibiotics) Allergy (Verified 02/03/19 12:38) Swelling Past Medical History - General Information source: Patient, Relative - Social History Smoking Status: Never Smoker Chew tobacco use (# tins/day): No Frequency of alcohol use: former Drug Abuse: None Lives with: Family Family History: Reviewed & Not Pertinent Patient has suicidal ideation: No Patient has homicidal ideation: No - Past Medical History Cardiac Medical History: Reports: None Denies: Hx Coronary Artery Disease, Hx Heart Attack, Hx Hypertension Pulmonary Medical History: Reports: None Denies: Hx Asthma, Hx Bronchitis, Hx COPD, Hx Pneumonia EENT Medical History: Reports: None Neurological Medical History: Reports: Hx Seizures - 2 YEARS AGO after a fall with head trauma. Denies: Hx Cerebrovascular Accident Endocrine Medical History: Reports: None Renal/ Medical History: Reports: Other - History of liver failure. Denies: Hx Peritoneal Dialysis Malignancy Medical History: Reports None GI Medical History: Reports: Hx Cirrhosis, Hx Liver Failure Musculoskeletal Medical History: Reports None, Denies Hx Arthritis Skin Medical History: Reports None Psychiatric Medical History: Reports: None Traumatic Medical History: Reports: None Infectious Medical History: Reports: None Past Surgical History: Reports: Hx Oral Surgery, Hx Orthopedic Surgery - Immunizations Hx Diphtheria, Pertussis, Tetanus Vaccination: Yes Hx Pneumococcal Vaccination: 05/25/16 Review of Systems - Review of Systems Constitutional: No symptoms reported EENT: No symptoms reported Cardiovascular: No symptoms reported Respiratory: No symptoms reported Gastrointestinal: No symptoms reported Genitourinary: No symptoms reported Male Genitourinary: No symptoms reported Musculoskeletal: No symptoms reported Skin: No symptoms reported Hematologic/Lymphatic: No symptoms reported Neurological/Psychological: See HPI, Seizure -: Yes All other systems reviewed and negative Physical Exam - Vital signs Vitals: Pulse Ox 99 02/10/19 03:41 Interpretation: Normal Course - Re-evaluation Re-evalutation: 02/10/19 05:37 CT head reveals a small left frontoparietal subdural hematoma, no midline shift. Blood counts indicate platelets of 44,000. Patient will be given IV Keppra, TXA, and platelets. Family has requested transfer to [facility]. 02/10/19 06:32 Patient has been accepted. - Vital Signs Vital signs: Temp Pulse Resp BP Pulse Ox 88 12 116/64 100 02/10/19 06:25 02/10/19 06:25 02/10/19 06:25 02/10/19 06:25 - Laboratory Result Diagrams: 02/10/19 03:09 02/10/19 03:09 Laboratory results interpreted by me: 02/10/19 02/10/19 02/10/19 03:09 03:09 04:55 RBC 2.79 L Hgb 9.4 L Hct 26.9 L MCH 33.5 H RDW 17.0 H Plt Count 44 L Lymph % (Auto) 8.2 L Seg Neutrophils % 81.1 H VBG pH 7.48 H Sodium 129.9 L Chloride 90 L Glucose 119 H Total Bilirubin 8.6 H Direct Bilirubin 4.3 H AST 164 H - Diagnostic Test Radiology reviewed: Image reviewed, Reports reviewed - Consults Dr. Mackenzie ([facility] Neurosurgery) Time consulted: 06:20 - will accept in transfer Critical Care Note - Critical Care Note Total time excluding time spent on procedures (mins): 120 Comments: Critical care time spent obtaining history from patient or surrogate, discussio ns with consultants, development of treatment plan with patient or surrogate, evaluation of patient's response to treatment, examination of patient, ordering and performing treatments and interventions, ordering and review of laboratory studies, re-evaluation of patient's condition, ordering and review of radiographic studies and review of old charts. Discharge - Discharge Clinical Impression: Subdural hematoma, Thrombocytopenia Chronic liver failure Qualifiers: Hepatic coma status: without hepatic coma Qualified Code(s): K72.10 - Chronic hepatic failure without coma Condition: Stable Disposition: [place] Referrals: JORDON BARTH PA-C [Primary Care Provider] - Follow up as needed
[2019-02-10 03:55] LABS: PLATELET COUNT 44 10^3/uL (150-450)
[2019-02-10 05:06] LABS: VENOUS BLOOD BASE EXCESS 5.3 mmol/L; VENOUS BLOOD HCO3 29.2 mmol/L (20-32); VENOUS BLOOD PCO2 39.8 mmHg (35-63); VENOUS BLOOD PH 7.48 (7.30-7.42)
--- NOTE | 2019-02-10 05:23 | RADIOLOGY REPORT (SQ) ---
CLINICAL HISTORY: Fall COMPARISON: None. TECHNIQUE: CT HEAD WITHOUT IV CONTRAST on 02/10/2019 4:30 AM CDT This exam was performed according to our departmental dose-optimization program, which includes automated exposure control, adjustment of the mA and/or kV according to patient size and/or use of iterative reconstruction technique. FINDINGS: There is a left frontal subdural hematoma measuring 6 mm in maximal depth. There is minimal mass effect with 2 mm [id number]-[id number] midline shift. Early-white differentiation is preserved. There is no hydrocephalus. There is no significant volume loss for age. The calvarium is intact. Orbits and globes are unremarkable. The paranasal sinuses are clear. There are bilateral cochlear implants in place. IMPRESSION: Left frontal subdural hematoma.
[2019-02-10] MEDS ORDERED: TRANEXAMIC ACID INJ/PF 1,000 MG/10 ML SDV IV ONE (05:39)
[2019-02-10] MEDS ORDERED: LEVETIRACETAM 1000 MG/NACL-ISO 1,000 MG/100 ML RTUPB IV ONE (05:40)
[2019-02-10] MEDS ORDERED: NORMAL SALINE 250 ML IV PRN ×2 (05:40)
[2019-02-10 06:38] LABS: INTERNATIONAL RATION (INR) 1.77; PROTHROMBIN TIME 20.8 SEC (11.4-15.4)
[2019-02-10 06:39] LABS: PARTIAL THROMBOPLASTIN TIME 34.7 SEC (23.5-35.8)
[2019-02-10 06:39] LABS: APPEARANCE,URINE CLEAR; BILIRUBIN,URINE MODERATE (NEGATIVE); GLUCOSE, URINE NEGATIVE (NEGATIVE); KETONES,URINE TRACE mg/dL (NEGATIVE); LEUKOCYTE ESTERASE,URINE NEGATIVE (NEGATIVE); NITRITE,URINE NEGATIVE (NEGATIVE); PROTEIN,URINE 30 mg/dL (NEGATIVE); URINE SPECIFIC GRAVITY 1.023
[2019-02-10 06:41] LABS: COLOR,URINE YELLOW
[2019-02-10] MEDS ORDERED: MORPHINE SULFATE 10 MG/ML INJ IV ONE ×3 (06:51→11:22)
[2019-02-10 06:58] LABS: URINE AMPHETAMINES SCREEN NEGATIVE; URINE BARBITURATES SCREEN NEGATIVE; URINE BENZODIAZEPINES SCREEN NEGATIVE; URINE COCAINE SCREEN NEGATIVE; URINE MARIJUANA (THC) SCREEN NEGATIVE; URINE METHADONE SCREEN NEGATIVE; URINE PHENCYCLIDINE SCREEN NEGATIVE
[2019-02-10 12:14] VITALS: BP 103/54
== END 2019-02-10 12:17 | disposition short-term general hospital (02) ==
LOC: ER 02:47
DX: S06.5X9A Traumatic subdural hemorrhage with loss of consciousness of unspecified duration, initial encounter (principal); W19.XXXA Unspecified fall, initial encounter; K70.40 Alcoholic hepatic failure without coma; R11.2 Nausea with vomiting, unspecified; R56.9 Unspecified convulsions; D69.6 Thrombocytopenia, unspecified; Z88.2 Allergy status to sulfonamides
CPT/HCPCS: 86900; 86901; 36415; 36430; 80307 ×2; 82140; 85025; 85610; 85730; 80053; 81001; 82803; 70450; P9035; J2270; J7050; J1953; J3490

== ENCOUNTER 2019-02-24 07:26 | Day surgery (SDC) | payer MEDICARE, MEDICAID ==
[2019-02-24 08:16] LABS: HEMATOCRIT 28.6 % (37.9-51.0); HEMOGLOBIN 9.7 g/dL (13.5-17.0); MEAN CORPUSCULAR HEMOGLOBIN 32.6 pg (27.0-33.4); MEAN CORPUSCULAR HGB CONC 33.8 g/dL (32.0-36.0); MEAN CORPUSCULAR VOLUME 97 fl (80-97); PLATELET COUNT 161 10^3/uL (150-450); RED BLOOD COUNT 2.96 10^6/uL (4.35-5.55); WHITE BLOOD COUNT 6.1 10^3/uL (4.0-10.5)
[2019-02-24 08:33] LABS: INTERNATIONAL RATION (INR) 1.33; PROTHROMBIN TIME 16.6 SEC (11.4-15.4)
[2019-02-24 08:38] LABS: BLOOD UREA NITROGEN 9 mg/dL (7-20)
[2019-02-24] MEDS ORDERED: ALBUMIN HUMAN 50 GM/200 ML RTUINJ IV PRN (10:19)
[2019-02-24 12:07] VITALS: BP 109/67
[2019-02-24 12:21] LABS: FLUID APPEARANCE CLOUDY; FLUID COLOR RED; FLUID SOURCE ASCITES; FLUID TYPE PERITONEAL; FLUID VISCOSITY SLIGHTLY VISCOUS
--- NOTE | 2019-02-24 16:29 | RADIOLOGY REPORT (SQ) ---
EXAM DESCRIPTION: U/S ABD PARACENTESIS COMPLETED DATE/TIME: 02/24/2019 11:08 am REASON FOR STUDY: Ascites COMPARISON Multiple previous most recently 10/08/2018 LIMITATIONS: None. PROCEDURE: After obtaining informed consent, the patient was brought to the ultrasound suite. The p rocedure was performed with the patient on a gurney. Ultrasound was used to identify a prominent poc ket of ascites in the right lower quadrant. An appropriate access site was selected. The patient wa s prepped and draped in usual sterile fashion. The access site was anesthetized with 7 mL 1% lidoca ine. A Cojp-[id number]-[id number] needle was advanced into the fluid. After aspiration of fluid the needle, th e catheter was advanced off the needle into the fluid. A total of 7,500 mL of serosanguineous fluid was removed. The patient tolerated the procedure well left the department in satisfactory condition. IMPRESSION: Successful ultrasound-guided therapeutic only paracentesis COMMENT: Patient medication list reviewed: Yes- Quality ID# [id number]:Eligible professional attests to doc umenting in the medical record they obtained, updated, or reviewed the patient's current medications. TECHNICAL DOCUMENTATION: JOB ID: [id number] [email or web address]- All Rights Reserved Reading location - IP/workstation name: [email or web address]
[2019-02-25 12:11] LABS: PATH REVIEW PATHOLOGIST REVIEWED
== END 2019-02-24 11:45 | disposition home or self-care (01) ==
LOC: RAD 07:26
PROVIDERS: ATTEND Internal Medicine Gastroenterology
DX: K70.31 Alcoholic cirrhosis of liver with ascites (principal); Z79.899 Other long term (current) drug therapy; Z79.01 Long term (current) use of anticoagulants; R16.0 Hepatomegaly, not elsewhere classified; K42.9 Umbilical hernia without obstruction or gangrene
CPT/HCPCS: 36415; 84520; 82565; 85027; 85610; 85730; 89050; 49083; P9047

== ENCOUNTER 2019-05-29 13:44 | Emergency (ER) | payer MEDICARE, MEDICAID ==
[2019-05-29 13:49] VITALS: BP 174/80
[2019-05-29] MEDS ORDERED: DIPH/PERTUSS(ACELL)/TETANUS VAC/PF 0.5 ML SYR (>=10YO) IM ONE (14:29)
[2019-05-29] MEDS ORDERED: BACITRACIN ZINC OINTMENT 15 GM TP ONE (14:29)
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
== END 2019-05-29 15:05 | disposition home or self-care (01) ==
LOC: ER 13:44
DX: T23.131A Burn of first degree of multiple right fingers (nail), not including thumb, initial encounter (principal); T23.151A Burn of first degree of right palm, initial encounter; X12.XXXA Contact with other hot fluids, initial encounter; Z23 Encounter for immunization; Z88.2 Allergy status to sulfonamides
CPT/HCPCS: 99283; 90471; 90715; A9270; J3490